=== PATIENT | male | born 1935 | race Caucasian/White ===

== ENCOUNTER 2018-12-29 09:05 | Observation (INO) | payer OTHER, SELFPAY ==
[2018-12-29] VITALS (16 sets, daily range): BP systolic 148–244; BP diastolic 53–108; PULSE 55–73; RESP 12–18; TEMP 36.7–37.2; O2SAT 93–97; BMI 22.4; BMI 21.3
--- NOTE | 2018-12-29 09:16 | EKG12_ITS ---
Test Reason : HTN Blood Pressure : / mmHG Vent. Rate : 066 BPM Atrial Rate : 066 BPM P-R Int : 176 ms QRS Dur : 098 ms QT Int : 398 ms P-R-T Axes : 082 -43 060 degrees QTc Int : 417 ms Normal sinus rhythm Left axis deviation Minimal voltage criteria for LVH, may be normal variant Cannot rule out Anteroseptal infarct , age undetermined Abnormal ECG Confirmed by YAYO BEE, DOMONIQUE ([id number]), publication editor EASTON CHANEY ([id number]) on 12/31/2018 1:29:15 PM Referred By: Leon Barrett Confirmed By:DOMONIQUE ZEE MD
--- NOTE | 2018-12-29 09:18 | ED.VISSUMM ---
- ER Visit Summary Date of Service: 12/29/18 Chief Complaint: Hypertension History of Present Illness: The patient is a 83 M who presents with hypertension that began yesterday. Patient states he had a warm feeling all over his body yesterday. Patient states he took his blood pressure and it was elevated. Patient states this improved yesterday evening and his blood pressure improved to 157/70. Patient had a similar feeling again today and took his blood pressure and it was 237/109 at home. Patient denies any chest pain. Patient denies any shortness of breath. Patient denies any nausea or vomiting. Patient denies any history of hypertension. Physical Examination: Vital signs are stable. Patient is afebrile. Patient is in no acute distress. Oral mucosa is pink and moist. Neck is supple. Trachea is midline. There is no JVD noted. Heart was regular rate and rhythm. Lungs are clear and equal bilateral. Abdomen is soft. Bowel sounds are normal. There is no tenderness. There is no guarding noted. Skin is warm dry. Cranial nerves II through XII are intact. There are no focal motor or sensory deficits noted. Extremities are nontender. There is no edema noted. Test Results: EKG showed a normal sinus rhythm with a rate of 66. There are hyperacute T waves noted in V3 through V6. There are no ST changes. There is minimal voltage criteria for LVH. There is no prior EKG available for comparison. CBC, comprehensive metabolic profile, urinalysis were obtained and were all essentially within normal limits. PA and lateral chest x-ray does not show any acute cardiopulmonary process. Emergency Department Course and Treatment: Patient was given a dose of labetalol here. Patient's blood pressure improved to 190/100. Patient's blood pressure then increased back to 203/81. Case was discussed with hospitalist. He will be to evaluate the patient for admission. Patient understood and was agreeable with the plan. All questions were answered. Disposition: Admit to hospital Impression: Hypertensive urgency This note was generated with [employer] dictation software. It may contain incorrect words, spelling, and punctuation that were not noted in review of the chart prior to signing ED Disposition - Plan for ED Patient: Disposition: Acute Care Hospital [facility] Diagnosis: Hypertensive urgency Referrals: NOT,DEFINED [NON-STAFF] -
--- NOTE | 2018-12-29 09:25 | ED.RN ---
NO OLD EKGS
[2018-12-29 09:26] LABS: Absolute Neutrophil Count 3.6 X10^3/uL (2.0-7.7); Basophil# 0.01 X10^3/uL; Basophil% 0.2 % (0-1); Eosinophil# 0.05 X10^3/uL; Eosinophils% 0.8 % (0-5); Hematocrit 43.5 % (40-54); Hemoglobin 15.2 g/dL (13.0-16.5); Lymphocyte % 28.6 % (19-41); Mean Corp Hgb Conc 34.9 g/dL (32-36); Mean Corpuscular Hgb 32.3 pg (27.0-32.0); Mean Corpuscular Volume 92.6 fL (80-94); Mean Platelet Vol. 9.6 fl (6.2-12.0); Monocyte# 0.54 X10^3/uL; Monocyte% 9.1 % (0-10); NRBC Flagged by Analyzer 0 % (0-5); Neutrophil # 3.63 X10^3/uL (2.7-7.7); Neutrophil % 61.1 % (47-70); Platelet Count 183 K/mm3 (150-450); RBC Distribution Width CV 12.6 % (11.6-14.6); RBC Distribution Width SD 42.8 fl (35.1-43.9); White Blood Count 5.9 K/mm3 (4.4-11.0)
[2018-12-29 09:40] LABS: AST(SGOT) 14 U/L (15-37); Alanine Aminotransfer ALT/SGPT 45 U/L (16-61); Albumin, Serum 3.6 g/dL (3.2-5.0); Alkaline Phosphatase 49 U/L (45-117); Anion Gap 7 (5-15); BUN 21 mg/dL (7-18); BUN/Creat Ratio 24.8 RATIO (10-20); Calcium,Total 8.6 mg/dL (8.5-10.1); Chloride 108 mmol/L (98-107); Creatinine, Serum 0.85 mg/dL (0.70-1.30); EST Glomerular Filtration Rate 92 mL/min (>60); Est Glom Filt Rate - Afr Amer 111 mL/min (>60); Estimated Creatinine Clearance 69.76 ml/min; Globulin 3.7 g/dL (2.2-4.2); Glucose 101 mg/dL (74-106); Potassium 3.7 mmol/L (3.5-5.1); Protein, Total 7.3 g/dL (6.4-8.2); Sodium Level 143 mmol/L (136-145)
[2018-12-29 09:47] LABS: Bacteria 0 SEEN /hpf (None Seen); Mucous, Urine 0 SEEN /hpf (<or=2+); Red Blood Cells-Urine 0 SEEN /hpf (0-5); Squamous Epithelial Cells - UA 0 SEEN /hpf (0-5)
[2018-12-29 09:49] LABS: Color, Urine Yellow (Yellow); Glucose, Dipstick Normal (Normal); Ketone-Dipstick 5 mg/dl (Negative); Leukocyte Esterase-Dipstick 25 /ul (Negative); Nitrite-Dipstick Negative (Negative); Occult Blood-Urine Negative /ul (Negative); Protein-Dipstick Negative (Negative); Urine Bilirubin Dipstick Negative (Negative); Urine Clarity Clear (Clear); Urine Urobilinogen Normal (Normal)
--- NOTE | 2018-12-29 09:50 | RAD_ITS ---
STUDY: X-RAY CHEST REASON FOR EXAM: Male, 83 years old. Cough. Hypertension. TECHNIQUE: PA and lateral views of the chest. COMPARISON: None. FINDINGS: EKG electrodes are seen. Hyperinflation. Mild increased markings in the lingular segment of the left upper lobe anteriorly suggestive of scarring. Mild right apical scarring. There is no demonstrated pleural abnormality. Normal size heart. Normal mediastinum and werner. Normal visualized pulmonary arteries. There is atherosclerotic calcification of the aortic arch with tortuosity. There are diffuse degenerative changes of the visualized thoracic spine. Normal visualized ribs, clavicles, and shoulders. There is no demonstrated abnormality of the visualized soft tissue structures of the upper abdomen. RAD/Chest PA and Lateral IMPRESSION: Hyperinflation. Mild increased markings at the lingular segment of the left upper lobe anteriorly suggestive of scarring. Electronically Signed: Morales Kendrick, at 10:14 EDT , Service support ,
[2018-12-29 10:15] LABS: Amorphous Sediment 2+; White Blood Cells 0-5 SEEN /hpf (0-5)
--- NOTE | 2018-12-29 11:29 | PCM.HP.STD ---
Problem List (1) Hypertensive urgency Status: Acute (2) Advanced age Status: Chronic History of Present Illness Date of Admission: 12/29/18 Chief Complaint: Elevated blood pressure The patient is a 83 year old M relatively good health on no medications who presented with elevated blood pressure. Patient states he is noticed that for the past couple of days his blood pressure has remained consistently high. On the day prior to coming in his systolic blood pressure was recorded to be 230. He states that he went to work and felt fine however he did check his blood pressure again on the morning of his admission and systolic was greater than 200 he finally presented to the ED. Work-up in the ED was unremarkable. Given how high his blood pressure was decision was made to admit patient to a monitored bed for subsequent management Past Medical History Past Medical History (Chronic Problems): Chronic Problems Advanced age (Chronic) Allergies No Known Allergies Allergy (Verified 12/29/18 09:06) Home Medications: Ambulatory Orders Medication Instructions Recorded NK 12/29/18 Smoking Status: Never smoker - *Family History Paternal History Items: Heart Disease Maternal History Items: Heart Disease - at age 90 Review of Systems Constitutional: Denies: Anorexia, Chills, Fever, Night Sweats, Weight Change HEENT: Denies: Head Aches, Sinus Congestion, Sinus Drainage Cardiovascular: Denies: Chest Pain, Orthopnea, Palpitations, Paroxysmal Noc. Dyspnea Respiratory: Denies: Cough, Shortness of breath at rest, Shortness of breath upon exertion, Sputum production Gastrointestinal: Denies: Abdominal Pain, Hematemesis, Hematochezia, Nausea, Melena, Vomiting Genitourinary: Denies: Dysuria, Frequency, Hematuria, Urgency Musculoskeletal: Denies: Joint Pain, Joint Tenderness Skin: Denies: Rash Neurological: Denies: Focal weakness, Numbness, Tingling Psychiatric: Denies: Homicidal Ideations, Suicidal Ideations Hematologic/ Lymphatic: Denies: Easy Bruising, Easy Bleeding VTE Information - Inpt Only VTE Present on Admission: No VTE Mechan Device Prophylaxis: Knee High JOHN Hose VTE Pharm Prophylaxis ordered?: Yes Patient Problems: Active and Suspected Problems Hypertensive urgency (Acute) Objective: GENERAL: cooperative HEENT: Atraumatic; EYES; Anicteric, NECK; supple, normal thyroid, RESPIRATORY: Diminished to auscultation CARDIOVASCULAR: Regular S1 S2, GI: soft, non-tender, normoactive bowel sounds, : No Renal angle tenderness; EXTREMITIES: No edema, no clubbing, MUSCULOSKELETAL: No Joint Tenderness; NEURO: Awake; no lateralizing signs. SKIN: No Rash PSYCH; Normal affect - Physical Exam Vital Signs Temp Pulse Resp BP Pulse Ox 98.7 F 62 15 202/74 H 96 12/29/18 09:07 12/29/18 11:28 12/29/18 11:28 12/29/18 11:28 12/29/18 11:28 Oxygen Flow Rate (L/min) 2 Oxygen Delivery Method Room Air Weight: 74.9 kg Body Mass Index (BMI) 22.4 Laboratory Tests Past 24 Hrs 12/29/18 12/29/18 12/29/18 09:15 09:15 09:34 WBC 5.9 RBC 4.70 Hgb 15.2 Hct 43.5 MCV 92.6 MCH 32.3 H MCHC 34.9 RDW Std Deviation 42.8 RDW Coeff of Atif 12.6 Plt Count 183 MPV 9.6 Immature Gran % (Auto) 0.200 Neut % (Auto) 61.1 Lymph % (Auto) 28.6 Yancey % (Auto) 9.1 Eos % (Auto) 0.8 Baso % (Auto) 0.2 Absolute Neuts (auto) 3.6 Absolute Lymphs (auto) 1.70 Nucleated RBC % 0 Sodium 143 Potassium 3.7 Chloride 108 H Carbon Dioxide 28.0 Anion Gap 7 BUN 21 H Creatinine 0.85 Estim Creat Clear Calc 69.76 Est GFR (MDRD) Af Amer 111 Est GFR (MDRD) Non-Af 92 BUN/Creatinine Ratio 24.8 H Glucose 101 Calcium 8.6 Total Bilirubin 0.90 AST 14 L ALT 45 Alkaline Phosphatase 49 Troponin I < 0.015 Total Protein 7.3 Albumin 3.6 Globulin 3.7 Albumin/Globulin Ratio 1.0 Urine Color Yellow Urine Clarity Clear Urine pH 8.0 Ur Specific [place] 1.010 Urine Protein Negative Urine Glucose (UA) Normal Urine Ketones 5 H Urine Occult Blood Negative Urine Nitrite Negative Urine Bilirubin Negative Urine Urobilinogen Normal Ur Leukocyte Esterase 25 H Urine RBC 0 SEEN Urine WBC 0-5 SEEN Ur Squamous Epith Cells 0 SEEN Amorphous Sediment 2+ Urine Bacteria 0 SEEN Urine Mucus 0 SEEN Assessment/Plan All Active Problems Hypertensive urgency (Acute) Patient is an 83-year-old gentleman in relatively good health presented with markedly elevated blood pressure 1. Acute hypertensive urgency in the patient without any prior diagnosis. Patient is been admitted to monitored bed patient was started on amlodipine as well as beta-blockers in addition to hydralazine PRN. As part of his management ordered 2D echo for EF assessment 2. Advanced age of 83 3. DVT prophylaxis SC Lovenox CODE STATUS full code Code Visit OBSV E&M: 80303 Initial observation care L3
--- NOTE | 2018-12-29 11:58 | CASEMGMT ---
RN CM Assessment Introduced role of RN CM to patient and patient Dtr & Son at bedside.? Patient is alert, oriented and able?to participate in RN CM Assessment. ?Care providers, pharmacy, and demographics verified. Presentation: Elevevated began yesterday, improved to 157/70, Today increased to 237/109, Denies h/o HTN. Admit Dx: Hypertensive Urgency Re-Admit: No Barriers/Issues: None, has a good family support system. States that he still works 4days/week. No Rx coverage, May need assistance if DC'd with Prescription. Insur- myRet[employer], Does not cover medications. PCP: None, states that he will most likely establish with his 's PCP, PCP list provided. States has been healthy and not needed a PCP as of yet. Specialists: None Preferred Pharmacy: [facility] okay if DC'd while still open, if not states to discuss with him and will tell you which Pharmacy as they are going to be switching his 's Pharmacy but did not know the name of it at this time. Insurance: myRete Rx Benefit:?None, Self Pay LNOK: Levi Oquendo Living Arrangements:? Lives with in a 2 story home, Bedroom on [address]. 2 steps to enter home on one entrance and 4 steps to enter at another entrance. ADL?s: Independent with ambulation and ADLs Transportation: [employer]uggie or Hired Staff Development Coordinator. Upon DC plans to Hire a Staff Development Coordinator. DME: None HHC: None SNF: None Goal: Home and does not anticipate will need anything, denies any questions/concerns/issues with DC Planning at this time. Aware CM remains available for any emerging needs. DC PLAN: Home with no anticipated needs identified at this time. May need a Coupon Card or assistance with DC Medications- if any. URSULA Salgado
--- NOTE | 2018-12-29 12:04 | ECHOD_ITS ---
Reason For Study: HYPERTENSION Procedure This was a 2D Doppler, Color Flow transthoracic echocardiogram. The study was technically difficult. Exam performed in department. Left Ventricle Normal LV size. Mild concentric left ventricular hypertrophy. Left ventricular systolic function is normal. The estimated ejection fraction is 65 %. There is evidence of diastolic dysfunction. No regional wall motion abnormalities noted. Right Ventricle Normal RV size. Normal systolic function. Atria The left atrium is mildly enlarged. Normal right atrium. No doppler evidence for ASD. Mitral Valve There is mild mitral annular calcification. Extension of the mitral annular calcification onto the mitral valve leaflets. Trivial mitral valve insufficiency. Tricuspid Valve Normal tricuspid valve. Mild (1+) eccentric tricuspid valve insufficiency. Right ventricular systolic pressure estimated to be 38 mmHg. Aortic Valve Trisinus/trileaflet aortic valve. Normal aortic valve. Trivial aortic valve insufficiency. Pulmonic Valve The pulmonic valve is not well visualized. Trivial pulmonic valve insufficiency. Great Vessels Normal sized aortic root. Pericardium/Pleural No pericardial effusion. MMode/2D Measurements & Calculations LVIDd: 4.1 cm IVSd: 1.4 cm Ao root diam: 2.9 cm LVIDs: 2.6 cm LVPWd: 1.4 cm RVDd: 3.6 cm FS: 36.2 % LAV(MOD-bp): 61.6 ml LA A4 area: 18.5 cm2 LA dimension(2D): 3.9 cm LAV(MOD-bp) Indexed: 31.4 ml/m2 LAV(MOD-sp2): 62.6 ml LAV(MOD-sp4): 54.9 ml RA A4 area: 15.1 cm2 Time Measurements MV dec time: 0.38 sec Doppler Measurements & Calculations MV E max domingo: 97.7 cm/sec Lat Peak E' Domingo: 5.4 cm/sec Med Peak E' Domingo: 6.4 cm/sec MV A max domingo: 127.4 cm/sec E/E' lat: 18.0 E/E' med: 15.3 MV E/A: 0.77 Ao V2 max: 161.9 cm/sec LV V1 max: 135.0 cm/sec PA V2 max: 80.8 cm/sec Ao max P.5 mmHg LV V1 max P.3 mmHg TR max domingo: 294.8 cm/sec TR max P.8 mmHg Interpretation Summary The study was technically difficult. Left ventricular systolic function is normal. The estimated ejection fraction is 65 %. Mild concentric left ventricular hypertrophy. The left atrium is mildly enlarged. There is mild mitral annular calcification. Extension of the mitral annular calcification onto the mitral valve leaflets. Trivial mitral valve insufficiency. Mild (1+) eccentric tricuspid valve insufficiency. Trivial aortic valve insufficiency. Trivial pulmonic valve insufficiency. Right ventricular systolic pressure estimated to be 38 mmHg. There is evidence of diastolic dysfunction. Ordering Physician: Leon Barrett Referring Physician: NO PCP Performed By: Gema Able, KURT, RVT
[2018-12-29] MEDS: Metoprolol Tartrate 25 MG Tablet PO ×2 (13:52→21:34)
[2018-12-29] MEDS: amLODIPine 10 MG Tablet PO (13:52)
[2018-12-29] MEDS: hydrALAZINE 20 MG/ML Vial 10 MG IV (16:30)
[2018-12-30] VITALS (8 sets, daily range): BP systolic 156–162; BP diastolic 62–79; PULSE 56–88; RESP 16; TEMP 36.7–36.8; O2SAT 97–98
[2018-12-30] MEDS: hydrALAZINE 20 MG/ML Vial 10 MG IV (04:25)
[2018-12-30] MEDS: 0.9% NaCl Peripheral Flush Adult/Peds IV (04:28)
[2018-12-30 06:07] LABS: Absolute Lymphocyte Count 1.45 X10^3/uL (0.83-4.51); Absolute Neutrophil Count 3.7 X10^3/uL (2.0-7.7); Basophil# 0.03 X10^3/uL; Basophil% 0.5 % (0-1); Eosinophil# 0.05 X10^3/uL; Eosinophils% 0.9 % (0-5); Hematocrit 42.7 % (40-54); Hemoglobin 14.5 g/dL (13.0-16.5); Lymphocyte # 1.45 X10^3/ul (4.0); Lymphocyte % 25.5 % (19-41); Mean Corpuscular Hgb 31.5 pg (27.0-32.0); Mean Corpuscular Volume 92.8 fL (80-94); Mean Platelet Vol. 9.8 fl (6.2-12.0); Monocyte% 8.8 % (0-10); NRBC Flagged by Analyzer 0 % (0-5); Neutrophil # 3.65 X10^3/uL (2.7-7.7); Neutrophil % 64.1 % (47-70); Platelet Count 184 K/mm3 (150-450); RBC Distribution Width CV 13.1 % (11.6-14.6); RBC Distribution Width SD 44.2 fl (35.1-43.9); White Blood Count 5.7 K/mm3 (4.4-11.0)
[2018-12-30 06:25] LABS: Anion Gap 8 (5-15); BUN 20 mg/dL (7-18); BUN/Creat Ratio 27.7 RATIO (10-20); Calcium,Total 8.6 mg/dL (8.5-10.1); Chloride 109 mmol/L (98-107); Creatinine, Serum 0.72 mg/dL (0.70-1.30); EST Glomerular Filtration Rate 111 mL/min (>60); Est Glom Filt Rate - Afr Amer 134 mL/min (>60); Estimated Creatinine Clearance 56.53 ml/min; Glucose 100 mg/dL (74-106); Potassium 3.8 mmol/L (3.5-5.1); Sodium Level 143 mmol/L (136-145)
[2018-12-30] MEDS: Metoprolol Tartrate 25 MG Tablet PO (08:46)
[2018-12-30] MEDS: Enoxaparin 40 MG/0.4 ML Syringe SC (08:46)
[2018-12-30] MEDS: amLODIPine 10 MG Tablet PO (08:46)
--- NOTE | 2018-12-30 09:12 | PCM.DC ---
- Discharge Diagnoses Current Active Problems: Current Active and Chronic Problems Hypertensive urgency (Acute) Advanced age (Chronic) You will use the following diet at home:: No restrictions Your food should be the consistency of: Regular Discharge Activity: Return to Normal Activity Allergies/Adverse Reactions: Allergies No Known Allergies Allergy (Verified 12/29/18 09:06) Medications to take at Discharge Amlodipine [Norvasc] 10 mg PO DAILY #30 tab 12/30/18 Metoprolol Tartrate [Lopressor (beta jose g)] 25 mg PO BID #60 tab 12/30/18 The following prescriptions were given: Metoprolol Tartrate [Lopressor (beta jose g)] 25 mg PO BID #60 tab Transmission Status: Pending to [facility] Amlodipine [Norvasc] 10 mg PO DAILY #30 tab Transmission Status: Pending to [facility] Primary Care Physician: NOT,DEFINED [NON-STAFF] - Please follow up with your Primary Care Physician in: in 1 week Test Results: Test results from this visit will be discussed in further detail at your follow-up appointment, if applicable. Proposed Discharge Date: 12/30/18
--- NOTE | 2018-12-30 09:13 | DS.PCM_ITS ---
Discharge Date and Diagnosis - Problem List Patient Problems: Active and Suspected Problems Hypertensive urgency (Acute) Date of Admission: 12/29/18 Date of Discharge: 12/30/18 - Primary Discharge Diagnosis Active and Suspected Problems Hypertensive urgency (Acute) - Secondary Discharge Diagnosis Chronic Problems Advanced age (Chronic) Hospital Course and Treatment Imaging Results: Clinical Impression(s) from Imaging Studies Chest X-Ray 12/29/18 09:50 IMPRESSION: Hyperinflation. Mild increased markings at the lingular segment of the left upper lobe anteriorly suggestive of scarring. Electronically Signed: Morales Mireille, at 10:14 EDT , Service support , Summary of Care Provided: Patient is an 83-year-old gentleman in relatively good health presented with markedly elevated blood pressure 1. Acute hypertensive urgency in the patient without any prior diagnosis. Patient is been admitted to monitored bed patient was started on amlodipine as well as beta-blockers in addition to hydralazine PRN. As part of his management ordered 2D echo for EF assessment patient 2D echo demonstrated EF of 65% with mild left ventricular hypertrophy patient was discharged home on metoprolol 25 mg p.o. twice daily as well as amlodipine 10 mg p.o. daily patient was instructed to follow-up with PCP within 1 week for subsequent care 2. Advanced age of 83 3. DVT prophylaxis SC Lovenox Patient Problems: Active and Suspected Problems Hypertensive urgency (Acute) Objective: GENERAL: cooperative HEENT: Atraumatic; EYES; Anicteric, NECK; supple, normal thyroid, RESPIRATORY: Diminished to auscultation CARDIOVASCULAR: Regular S1 S2, GI: soft, non-tender, normoactive bowel sounds, NEURO: Awake; no lateralizing signs. SKIN: No Rash PSYCH; Normal affect - Physical Exam Vital Signs Temp Pulse Resp BP Pulse Ox 98.1 F 83 16 157/68 H 97 12/30/18 03:30 12/30/18 08:46 12/30/18 03:30 12/30/18 06:00 12/30/18 03:30 Oxygen Flow Rate (L/min) 2 Oxygen Delivery Method Room Air Weight: 71.4 kg Body Mass Index (BMI) 21.3 Intake and Output for Last 24 Hours 12/28/18 12/29/1819 23:59 23:59 23:59 Intake Total 780 / 780 200 / 200 Balance 780 / 780 200 / 200 Laboratory Tests Past 24 Hrs 12/29/18 12/29/18 12/29/18 09:15 09:15 09:34 WBC 5.9 RBC 4.70 Hgb 15.2 Hct 43.5 MCV 92.6 MCH 32.3 H MCHC 34.9 RDW Std Deviation 42.8 RDW Coeff of Atif 12.6 Plt Count 183 MPV 9.6 Immature Gran % (Auto) 0.200 Neut % (Auto) 61.1 Lymph % (Auto) 28.6 [place] % (Auto) 9.1 Eos % (Auto) 0.8 Baso % (Auto) 0.2 Absolute Neuts (auto) 3.6 Absolute Lymphs (auto) 1.70 Nucleated RBC % 0 Sodium 143 Potassium 3.7 Chloride 108 H Carbon Dioxide 28.0 Anion Gap 7 BUN 21 H Creatinine 0.85 Estim Creat Clear Calc 69.76 Est GFR (MDRD) Af Amer 111 Est GFR (MDRD) Non-Af 92 BUN/Creatinine Ratio 24.8 H Glucose 101 Calcium 8.6 Total Bilirubin 0.90 AST 14 L ALT 45 Alkaline Phosphatase 49 Troponin I < 0.015 Total Protein 7.3 Albumin 3.6 Globulin 3.7 Albumin/Globulin Ratio 1.0 Urine Color Yellow Urine Clarity Clear Urine pH 8.0 Ur Specific [place] 1.010 Urine Protein Negative Urine Glucose (UA) Normal Urine Ketones 5 H Urine Occult Blood Negative Urine Nitrite Negative Urine Bilirubin Negative Urine Urobilinogen Normal Ur Leukocyte Esterase 25 H Urine RBC 0 SEEN Urine WBC 0-5 SEEN Ur Squamous Epith Cells 0 SEEN Amorphous Sediment 2+ Urine Bacteria 0 SEEN Urine Mucus 0 SEEN 12/29/18 12/29/18 12/30/18 12:25 14:56 05:20 WBC 5.7 RBC 4.60 Hgb 14.5 Hct 42.7 MCV 92.8 MCH 31.5 MCHC 34.0 RDW Std Deviation 44.2 H RDW Coeff of Atif 13.1 Plt Count 184 MPV 9.8 Immature Gran % (Auto) 0.200 Neut % (Auto) 64.1 Lymph % (Auto) 25.5 [place]uyler % (Auto) 8.8 Eos % (Auto) 0.9 Baso % (Auto) 0.5 Absolute Neuts (auto) 3.7 Absolute Lymphs (auto) 1.45 Nucleated RBC % 0 Sodium Potassium Chloride Carbon Dioxide Anion Gap BUN Creatinine Estim Creat Clear Calc Est GFR (MDRD) Af Amer Est GFR (MDRD) Non-Af BUN/Creatinine Ratio Glucose Calcium Total Bilirubin AST ALT Alkaline Phosphatase Troponin I < 0.015 < 0.015 Total Protein Albumin Globulin Albumin/Globulin Ratio Urine Color Urine Clarity Urine pH Ur Specific Stewart Urine Protein Urine Glucose (UA) Urine Ketones Urine Occult Blood Urine Nitrite Urine Bilirubin Urine Urobilinogen Ur Leukocyte Esterase Urine RBC Urine WBC Ur Squamous Epith Cells Amorphous Sediment Urine Bacteria Urine Mucus 12/30/18 05:20 WBC RBC Hgb Hct MCV MCH MCHC RDW Std Deviation RDW Coeff of Atif Plt Count MPV Immature Gran % (Auto) Neut % (Auto) Lymph % (Auto) Schu[place] % (Auto) Eos % (Auto) Baso % (Auto) Absolute Neuts (auto) Absolute Lymphs (auto) Nucleated RBC % Sodium 143 Potassium 3.8 Chloride 109 H Carbon Dioxide 26.0 Anion Gap 8 BUN 20 H Creatinine 0.72 Estim Creat Clear Calc 56.53 Est GFR (MDRD) Af Amer 134 Est GFR (MDRD) Non-Af 111 BUN/Creatinine Ratio 27.7 H Glucose 100 Calcium 8.6 Total Bilirubin AST ALT Alkaline Phosphatase Troponin I Total Protein Albumin Globulin Albumin/Globulin Ratio Urine Color Urine Clarity Urine pH Ur Specific Stewart Urine Protein Urine Glucose (UA) Urine Ketones Urine Occult Blood Urine Nitrite Urine Bilirubin Urine Urobilinogen Ur Leukocyte Esterase Urine RBC Urine WBC Ur Squamous Epith Cells Amorphous Sediment Urine Bacteria Urine Mucus Discharge Diet: No Restrictions Discharge Activity: Return to Normal Activity Home Medications: Medications to take at Discharge Amlodipine [Norvasc] 10 mg PO DAILY #30 tab 12/30/18 Metoprolol Tartrate [Lopressor (beta jose g)] 25 mg PO BID #60 tab 12/30/18 Following Prescrptions Were Given to Patient: Metoprolol Tartrate [Lopressor (beta jose g)] 25 mg PO BID #60 tab Transmission Status: Pending to [facility] Amlodipine [Norvasc] 10 mg PO DAILY #30 tab Transmission Status: Pending to [facility] Primary Care Physician: NOT,DEFINED [NON-STAFF] - Please follow up with your Primary Care Physician in: in 1 week Disposition: Home Minutes spent on discharge:: 35 Patient Condition:: Stable Medical Necessity - Tobacco Use Smoking Status: Never smoker Meaningful Use Info Meaningful Use Diagnoses (Choose all that apply): None applicable Code Visit OBSV E&M: 13870 Observation care discharge
== END 2018-12-30 09:12 | disposition home or self-care (01) ==
LOC: ED 11:29 → PCU 11:35
PROVIDERS: Admitting Provider Internal Medicine; Emergency Provider Emergency Medicine; Referring Provider Internal Medicine; Visit Provider Internal Medicine
DX: I16.0 Hypertensive urgency (principal); I10 Essential (primary) hypertension; R94.31 Abnormal electrocardiogram [ECG] [EKG]; I08.3 Combined rheumatic disorders of mitral, aortic and tricuspid valves
CPT/HCPCS: 36415; 71046; 80048; 80053; 81001; 84484; 85025; 93005; 93306; 96372; 96374; 96375; 96376; 99218; 99251; 99285; J7030; A4216; G0378; G0463

== ENCOUNTER 2019-08-20 14:07 | Observation (INO) | payer OTHER, SELFPAY ==
[2019-08-20] VITALS (14 sets, daily range): BP systolic 120–204; BP diastolic 54–91; PULSE 58–641; RESP 14–19; TEMP 36.2–37.2; O2SAT 94–97; BMI 22.4; BMI 21.8; BMI 20.9; BMI 21.0
--- NOTE | 2019-08-20 14:18 | EKG12_ITS ---
Test Reason : Blood Pressure : / mmHG Vent. Rate : 064 BPM Atrial Rate : 064 BPM P-R Int : 208 ms QRS Dur : 098 ms QT Int : 418 ms P-R-T Axes : 075 -47 036 degrees QTc Int : 431 ms Normal sinus rhythm Left axis deviation Minimal voltage criteria for LVH, may be normal variant Abnormal ECG Confirmed by ROBER BEE, GERHARD ([id number]), senior technical editor JAGUAR BUCK ([id number]) on 08/23/2019 10:52:33 AM Referred By: MATI Confirmed By:GERHARD RICHTER MD
--- NOTE | 2019-08-20 14:18 | CT_ITS ---
STUDY: CT BRAIN WITHOUT CONTRAST REASON FOR EXAM: Male, 83 years old. DIZZINESS X 2 DAYS, CONFUSION RADIATION DOSAGE (If Supplied By Facility): CTDIvol = ( 44.99 ) mGy, DLP = ( 812.98 ) mGycm TECHNIQUE: Transaxial CT imaging of the brain was performed without administration of intravenous contrast material. Individualized dose optimization techniques were used for this CT. COMPARISON: No relevant priors. FINDINGS: Normal soft tissue structures. Normal calvarium. There is mild cerebral atrophy with widening of the extra-axial spaces and ventricular dilatation. There are areas of decreased attenuation within the white matter tracts of the supratentorial brain, consistent with microvascular disease changes. There are small punctate calcifications of the basal ganglia which are seen in the aging brain as a normal variant. Normal brainstem. Normal cerebellum. There is no intracranial hemorrhage. There are no findings of an acute ischemic infarction. Atherosclerotic calcification of the cavernous portions of the internal carotid arteries bilaterally. Normal visualized paranasal sinuses. CT/Brain/Head without Contrast IMPRESSION: Chronic involutional changes of the brain. Electronically Signed: Morales Kendrick, at 15:22 EDT , Service support ,
--- NOTE | 2019-08-20 14:21 | ED.DCSUM_ITS ---
History of Present Illness Informant: Patient Onset: Days Context: Gradual Onset Timing: Intermittent Current Severity: Moderate Maximum Severity: Moderate Narrative: The patient is an 83-year-old male that presents to the emergency department with intermittent vertiginous symptoms and difficulties with word finding. Patient states on Friday, when he woke up, he turned his head and got the acute onset of vertiginous symptoms. He states that they would come and go were made worse with movement. He was referred to ENT. The patient began to have difficulty with word finding at the office. He was sent over for immediate evaluation. The patient states that on arrival, symptoms have markedly improved. He still does describe some sensation of motion, but feels like his speech is back to normal. He denies any fevers or chills. He states he is otherwise been in his normal state of health. Prior similar symptoms: No Recent Illness/Hospitalization: No <Riki Hightower - Last Filed: 08/20/19 14:23> <Pradeep Muhammad - Last Filed: 08/20/19 15:44> Chief Complaint: Dizziness Past Medical History Prior records reviewed: Yes Past Medical History: - - Hypertension Surgical History: noncontributory Smoking Status: Never smoker - Family History Paternal Family History: Reports: Heart Disease Maternal Family History: Reports: Heart Disease - at age 90 <Riki Hightower - Last Filed: 08/20/19 14:23> <Pradeep Muhammad - Last Filed: 08/20/19 15:44> - Allergies and Home Meds Allergies/Adverse Reactions: Allergies No Known Allergies Allergy (Verified 08/20/19 14:08) Primary Care Physician: Amy Garsia NP-C [Primary Care Provider] - Review of Systems General: Denies: Chills, Fever, Sweats Eyes: Denies: Visual changes - bilaterally, Diplopia ENT: Denies: Rhinorrhea, Sore throat Cardiovascular: Denies: Chest pain, Palpitations Respiratory: Denies: Dyspnea, Cough, Dyspnea on exertion Gastrointestinal: Denies: Abdominal pain, Nausea, Vomiting, Diarrhea, Melena, Hematochezia Genitourinary: Denies: Dysuria, Hematuria, Frequency Musculoskeletal: Denies: Back pain, Extremity Pain Skin: Denies: Rash, Wounds Neurological: Reports: Headache. Denies: Weakness, Numbness <KatjaRiki - Last Filed: 08/20/19 14:23> Physical Exam Vital Signs/Narrative: Vital Signs Temp Pulse Resp BP Pulse Ox 08/20/19 14:08 97.2 F L 79 18 204/91 H 97 Inital Vital Signs reviewed: Yes General: Well nourished, Well developed, No Acute Distress Head: Normocephalic, Atraumatic Eyes: Perrl, EOMI ENT: Moist mucous membranes, No rhinorrhea Neck: Supple, Nontender Cardiovascular: Regular rate, Regular rhythm, No murmurs Respiratory: No distress, CTA bilaterally, Chest nontender Abdomen: Soft, Nontender, Nondistended, Normal bowel sounds Back: Nontender, Normal Inspection Extremities: Nontender, No edema Skin: Normal color, No rash Neurological: Alert, Oriented x3, Cranial nerves II-XII grossly intact, Normal Strength, Normal Sensation Psychological: Normal affect, Normal Mood <Riki Hightower - Last Filed: 08/20/19 14:23> Vital Signs/Narrative: Vital Signs Temp Pulse Resp BP Pulse Ox 08/20/19 15:00 64 16 184/67 H 96 08/20/19 14:08 97.2 F L 79 18 204/91 H 97 <Pradeep Muhammad - Last Filed: 08/20/19 15:44> Diagnostic/Tx/Re-eval - Medical Decision Making On arrival, the patient symptoms have resolved. However, his symptoms do seem concerning for TIA versus stroke. Stroke team was not activated given his lack of symptoms. The patient will undergo noncontrast head CT, along with metabolic work-up. <Riki Hightower - Last Filed: 08/20/19 14:23> - Rhythm Strip Rhythm Strip: Sinus Rhythm Rate: 64 Ectopy: None - Medical Decision Making Patient was turned over to me. NIH remains 0. CT brain negative. Metabolic work-up negative. He is not a TPA candidate since his NIH is now 0 but he did have fairly significant expressive aphasia earlier. Given his comorbidities and advanced age, I do feel he meets criteria for observation and TIA work-up. I have paged the hospitalist to arrange this. <Pradeep Muhammad - Last Filed: 08/20/19 15:44> ED Disposition <Riki Hightower - Last Filed: 08/20/19 14:23> <Pradeep Muhammad - Last Filed: 08/20/19 15:44> - Plan for ED Patient: Disposition: Acute Care Hospital [facility] Diagnosis: TIA (transient ischemic attack) Referrals: Amy Garsia, SUZY-C [Primary Care Provider] -
--- NOTE | 2019-08-20 14:43 | RAD_ITS ---
STUDY: X-RAY CHEST REASON FOR EXAM: Male, 83 years old. COUGH, DIZZINESS TECHNIQUE: Single PA view of the chest. COMPARISON: Comparison is made with prior examination dated December 29, 2018. FINDINGS: EKG electrodes are seen. The lungs are clear and expanded. There is no demonstrated pleural abnormality. Normal size heart. Normal mediastinum and werner. Normal visualized pulmonary arteries. There is atherosclerotic calcification of the aortic arch with tortuosity. There are diffuse degenerative changes of the visualized thoracic spine. There is degenerative osteoarthritis of the bilateral shoulders. Calcific tendinitis of the right shoulder. There is no demonstrated abnormality of the visualized soft tissue structures of the upper abdomen. RAD/Chest 1 View IMPRESSION: No acute abnormality is seen. Electronically Signed: Morales Kendrick, at 15:22 EDT , Service support ,
[2019-08-20] MEDS: 0.9% Normal Saline 1,000 ML 100 ML IV (14:58)
[2019-08-20 15:04] LABS: Absolute Lymphocyte Count 0.92 X10^3/uL (0.83-4.51); Absolute Neutrophil Count 4.2 X10^3/uL (2.0-7.7); Basophil# 0.01 X10^3/uL; Basophil% 0.2 % (0-1); Eosinophil# 0.01 X10^3/uL; Eosinophils% 0.2 % (0-5); Hematocrit 41.2 % (40-54); Hemoglobin 14.9 g/dL (13.0-16.5); Lymphocyte # 0.92 X10^3/ul (4.0); Lymphocyte % 16.4 % (19-41); Mean Corp Hgb Conc 36.2 g/dL (32-36); Mean Corpuscular Hgb 31.9 pg (27.0-32.0); Mean Corpuscular Volume 88.2 fL (80-94); Mean Platelet Vol. 9.5 fl (6.2-12.0); Monocyte# 0.44 X10^3/uL; Monocyte% 7.8 % (0-10); NRBC Flagged by Analyzer 0 % (0-5); Neutrophil # 4.21 X10^3/uL (2.7-7.7); Platelet Count 198 K/mm3 (150-450); RBC Distribution Width CV 12.3 % (11.6-14.6); RBC Distribution Width SD 39.7 fl (35.1-43.9); Red Blood Count 4.67 M/mm3 (4.6-6.2); White Blood Count 5.6 K/mm3 (4.4-11.0)
[2019-08-20 15:11] LABS: Prothrombin Time (Protime)PT. 13.4 SECONDS (11.7-14.9)
[2019-08-20 15:12] LABS: Partial Thromboplast Time 32.6 Seconds (24.1-36.2)
[2019-08-20 15:15] LABS: Anion Gap 8 (5-15); BUN 8 mg/dL (7-18); BUN/Creat Ratio 12.8 RATIO (10-20); Calcium,Total 8.7 mg/dL (8.5-10.1); Chloride 92 mmol/L (98-107); Creatinine, Serum 0.62 mg/dL (0.70-1.30); EST Glomerular Filtration Rate 131 mL/min (>60); Est Glom Filt Rate - Afr Amer 158 mL/min (>60); Estimated Creatinine Clearance 57.87 ml/min; Glucose 134 mg/dL (74-106); Potassium 3.4 mmol/L (3.5-5.1); Sodium Level 127 mmol/L (136-145)
--- NOTE | 2019-08-20 17:28 | HP.PCM_ITS ---
Problem List (1) Hyponatremia Status: Acute (2) Vertigo Status: Acute (3) Diastolic dysfunction Status: Chronic (4) Left ventricular hypertrophy Status: Chronic Comment: Mild (5) Left atrial enlargement Status: Chronic Comment: Mild (6) Pulmonary hypertension Status: Acute Comment: Mild, RV systolic in 2019 estimated at 38 (7) TIA (transient ischemic attack) Status: Acute Comment: 08/20/19 expressive aphasia (8) Hypertensive urgency Status: Resolved (9) Advanced age Status: Chronic (10) Hypokalemia Status: Acute History of Present Illness Date of Admission: 08/20/19 Chief Complaint: could not get his speech out today and has had vertigo since friday The patient is a 83 year old M with a past medical history of hypertension, diastolic dysfunction, left atrial enlargement, mild pulmonary hypertension with an RV systolic estimated at 38 and OA who presented to the emergency department at [facility] on 08/20/2019 complaining of vertigo which started 2 days ago. It increases with changes in head position and is associated with nausea and vomiting. He was seen by Amy Garsia this morning and was given a prescription for Antivert. He took one Antivert and it seems to have helped. He was referred to Dr. Bautista and went to the office. When he arrived at the office he had expressive a aphasia and he was referred to the emergency depart ment. By the time he arrived at the emergency department the expressive a aphasia had resolved. He denies any hx of a stroke in the past. He smoked for a time MANY years ago. No FH of strokes or NV's. He denies chest pain, shortness of breath, headache, sore throat, nasal congestion, ear pain and cough. Vital signs at presentation to the emergency department were temperature 97.2, blood pressure 204/91, respiratory rate 18 and he is 97% saturated on room air. Current blood pressure is 148/63 and he did not receive any meds. Chest x-ray showed no infiltrates, pleural effusions or pulmonary vascular congestion. A noncontrasted CT brain showed cerebral atrophy only. CBC was unremarkable. Sodium is low at 127, potassium is low at 3.4 and the chloride is low at 97. The BUN is 8 with a creatinine of 0.62. Random blood sugar is 134 and he has no history of diabetes mellitus. Troponin was less than 0.015. EKG showed no ST elevation and no significant T wave inversions or ST depression. He is being admitted to a monitored bed on PCU to be evaluated for cerebrovascular disease. He did not take his BP pill today and this may be why his BP is increased but, when I look at the BP's he has been recording at home....they are frequently too high. Past Medical History Past Medical History (Chronic Problems): Chronic Problems Advanced age (Chronic) Diastolic dysfunction (Chronic) Left ventricular hypertrophy (Chronic) Mild Left atrial enlargement (Chronic) Mild Allergies No Known Allergies Allergy (Verified 08/20/19 14:08) Home Medications: Ambulatory Orders Medication Instructions Recorded Amlodipine [Norvasc] 10 mg PO DAILY 08/20/19 Meclizine HCl [Antivert] 12.5 mg PO BID PRN PRN 08/20/19 Surgical History: no surgical history Psychiatric History: No pertinent psych hx Lives: With Family Smoking Status: Former smoker - for a brief time when he was a young man Tobacco Use: Non-smoker Alcohol: None Drugs: None - *Family History Paternal History Items: Heart Disease Maternal History Items: Heart Disease - at age 90 Review of Systems Constitutional: Reports: Anorexia, Malaise. Denies: Chills, Fever, Weight Change Eyes: Denies: Blurred vision HEENT: Reports: - - he has had vertigo for the past 48 hours. Denies: Difficulty Swallowing, Ear Pain, Head Aches, Nasal Congestion, Sinus Congestion, Sinus Drainage, Sore Throat Cardiovascular: Denies: Chest Pain, Edema, Light Headedness, Palpitations Respiratory: Denies: Cough, Shortness of breath at rest, Sputum production Gastrointestinal: Denies: Abdominal Pain, Nausea, Vomiting Genitourinary: Denies: Dysuria Musculoskeletal: Denies: Joint Pain, Joint Tenderness, Neck Pain Skin: Denies: Jaundice, Rash, Wounds Neurological: Reports: Change in Speech - brief transient expressive aphasia. Denies: Focal weakness, Numbness, Tingling, Tremor, Seizures Psychiatric: Denies: Anxiety, Depression, Homicidal Ideations, Suicidal Id eations Endocrine: Reports: Change in Body Habitus - he has lost 5 lbs this week due to poor intake and vomiting but prior to this week his wt was stable Hematologic/ Lymphatic: Denies: Easy Bruising, Easy Bleeding, Hx of blood clot VTE Information - Inpt Only VTE Present on Admission: No VTE Mechan Device Prophylaxis: None VTE Pharm Prophylaxis ordered?: Yes Patient Problems: Active and Suspected Problems TIA (transient ischemic attack) (Acute) 08/20/19 expressive aphasia Hyponatremia (Acute) Vertigo (Acute) Pulmonary hypertension (Acute) Mild, RV systolic in 2019 estimated at 38 Hypokalemia (Acute) - Physical Exam Vitals/I&O's: Vital Signs Temp Pulse Resp BP Pulse Ox 98.6 F 79 18 148/63 H 96 08/20/19 16:26 08/20/19 17:07 08/20/19 17:07 08/20/19 17:07 08/20/19 17:07 Oxygen Delivery Method Room Air Weight: 161 lb 2.526 oz Body Mass Index (BMI) 21.8 Finger Stick Blood Glucose 134 General: Alert, Oriented x3, Cooperative, - - looks as though he does not feel well and also looks tired HEENT: Atraumatic, PERRLA, EOMI, Normocephalic, - - very mild horizontal nystagmus Oral: Moist Mucosa Neck: Supple, No JVD, Negative Carotid Bruits, No Nodes, No Nuchal Rigidity, Trachea Midline, - - Brisk carotid upstroke with good pulse volume Lungs: Clear to auscultation, Normal air movement, No rhonchi, No wheeze, No rales Cardiovascular: Regular rate, Regular Rhythm, Normal S1, Normal S2, No murmurs, No Ectopic Activity, No rub noted, No Gallop Abdomen: Bowel Sounds Present, Soft, Non Tender, Non-Distended, - - No guarding with palpation, nontender Extremities: No clubbing, No cyanosis, No edema, Capillary Refill Less than 3 Seconds, No Calf Tenderness, Peripheral Pulses Normal Skin: No rashes, No breakdown Musculoskeletal: No Tenderness to Palpation of Joints or Extremities, No Muscle Wasting Neurological: Cranial nerves II-XII grossly intact, Neuro grossly intact Psych/Mental Status: Normal Affect, Appropriate Laboratory Results 08/20/19 14:45: WBC 5.6, RBC 4.67, Hgb 14.9, Hct 41.2, MCV 88.2, MCH 31.9, MCHC 36.2 H, RDW Std Deviation 39.7, RDW Coeff of Atif 12.3, Plt Count 198, MPV 9.5, Immature Gran % (Auto) 0.400, Neut % (Auto) 75.0 H, Lymph % (Auto) 16.4 L, [place] % (Auto) 7.8, Eos % (Auto) 0.2, Baso % (Auto) 0.2, Absolute Neuts (auto) 4.2, Absolute Lymphs (auto) 0.92, Nucleated RBC % 0 08/20/19 14:45: PT 13.4, INR 1.0, APTT 32.6 08/20/19 14:45: Sodium 127 L, Potassium 3.4 L, Chloride 92 L, Carbon Dioxide 27.0, Anion Gap 8, BUN 8, Creatinine 0.62 L, Estim Creat Clear Calc 57.87, Est GFR (MDRD) Af Amer 158, Est GFR (MDRD) Non-Af 131, BUN/Creatinine Ratio 12.8, Glucose 134 H, Calcium 8.7, Troponin I < 0.015 Current Medications Sodium Chloride () 1,000 mls @ 100 mls/hr IV .Q10H ONE Stop: 08/21/19 00:17 Last Admin: 08/20/19 14:58 Dose: 100 mls/hr Documented by: Assessment/Plan All Active Problems TIA (transient ischemic attack) (Acute) Hyponatremia (Acute) Vertigo (Acute) Pulmonary hypertension (Acute) Hypokalemia (Acute) Hypertensive urgency (Resolved) Impressions 1. TIA with transient expressive a aphasia, resolved prior to arriving in the emergency department. Being admitted to a monitored bed on PCU for neurologic work-up. No history of atrial fibrillation. Mild left atrial enlargement on an echocardiogram done within the past year. 2. Hyponatremia -BUN/creatinine ratio is not significantly elevated and I cannot definitely attribute this to dehydration. Will check a urine sodium, urine creatinine, urine and serum osmolality. 3. Hyperglycemia with no history of diabetes mellitus type 2-we will check a hemoglobin A1c 4. Hypertension -we will allow permissive elevation in high blood pressure at this time until neurologic evaluation has been completed. 5. Diastolic dysfunction 6. Left ventricular hypertrophy 7. Mild pulmonary hypertension with a right ventricular systolic pressure estimated at 38 within the past year 8. vertigo for 48H - somewhat better after one dose of Antivert Admit to a monitored bed on PCU Initiate Stroke protocol CTA of the head and neck Antiplatelet therapy with aspirin PT consult for vertigo and gait unsteadiness Hydrate-he received 1 L of normal saline in the emergency department and will continue 75 cc of normal saline per hour Lipid profile in the AM ECHO If he has an abnormal CTA of the head or neck consider an MRI and SOC consult OBSV E&M: [id number] Initial observation care L2
--- NOTE | 2019-08-20 18:25 | CT_ITS ---
STUDY: CTA HEAD AND NECK WITH CONTRAST REASON FOR EXAM: Male, 83 years old. DIZZINESS x 2 days,confusion,nausea and vomiting RADIATION DOSAGE (If Supplied By Facility): CTDIvol = ( 26.86 ) mGy, DLP = ( 658.67 ) mGycm TECHNIQUE: CT angiography was performed with a multi-detector CT scanner. Data acquisition was obtained from the skull base through the vertex following intravenous administration of IV 100mL [id number]-[id number]. MIP images were reconstructed from the axial data set. Post-processing of the angiographic images was performed, with multiplanar reformation and 3D reconstruction. Individualized dose optimization techniques were used for this CT. COMPARISON: Head CT same day FINDINGS: Intracranial ICA calcifications. Otherwise: Normal bilateral petrous carotid arteries. Normal right cavernous carotid artery with a normal supraclinoid bifurcation. Normal left cavernous carotid artery with a normal supraclinoid bifurcation. Normal right A1 segments of the anterior cerebral artery. Normal left A1 segments of the anterior cerebral artery. Normal intact anterior communicating artery (ACOM). Normal bilateral A2 segments of the anterior cerebral arteries. Normal right M1 and M2 segments of the middle cerebral arteries, with a normal M1 bifurcation. Normal left M1 and M2 segments of the middle cerebral arteries, with a normal M1 bifurcation. Normal right posterior communicating artery (PCOM). There is a persistent origin of the left posterior cerebral artery with absence of the posterior communicating artery (PCOM). Normal bilateral vertebral arteries. Normal basilar artery with a normal basilar bifurcation. The visualized bilateral superior cerebellar (SCA) arteries are normal. Normal bilateral P1, P2 and visualized P3 segments of the posterior cerebral arteries. There is no demonstrated aneurysm of the [place]. There is no demonstrated abnormality of the visualized brain. AORTIC ARCH: Normal visualized aortic arch. Normal origins of the brachiocephalic, left common carotid, and left subclavian arteries. RIGHT CAROTID ARTERIES: Normal right common carotid artery (CCA). Moderate eccentric mixed plaque in the carotid bulb without associated flow-limiting stenosis. Normal origin of the right internal carotid (ICA) artery without a hemodynamically significant stenosis. Normal visualized cervical portion of the right internal carotid artery. Normal origin of the right external carotid artery (ECA). LEFT CAROTID ARTERIES: Normal left common carotid artery (CCA). Extensive concentric mixed plaque in the carotid bulb without associated flow-limiting stenosis. Normal origin of the left internal carotid (ICA) artery without a hemodynamically significant stenosis. Normal visualized cervical portion of the left internal carotid artery. Normal origin of the left external carotid artery (ECA). VERTEBRAL ARTERIES: Normal bilateral vertebral arteries. CT/CTA Head AND Neck W/ Contrast IMPRESSION: No CTA evidence of significant intracranial arterial pathology. No CTA evidence of significant arterial pathology in the neck. NASCET criteria was used. Electronically Signed: Naresh Kenney MD at 19:28 EDT Tel , Service support ,
--- NOTE | 2019-08-20 18:25 | ECHOD_ITS ---
Reason For Study: TIA/CVA Procedure This was a 2D Doppler, Color Flow transthoracic echocardiogram. Exam performed portable in patient room. Left Ventricle Normal left ventricle. The estimated ejection fraction is 60 %. Right Ventricle Normal right ventricle. Atria The left atrium is mildly enlarged. increased LA filling pressure. Normal right atrium. Bubble contrast study negative for right to left interatrial shunt. Mitral Valve Trivial mitral valve insufficiency. Tricuspid Valve Mild to moderate (1-2+) eccentric tricuspid valve insufficiency. Pulmonary artery systolic pressure is 29 mmHg. Aortic Valve Aortic sclerosis, no stenosis. Great Vessels Normal aortic root. Pericardium/Pleural No pericardial effusion. Medication Performed a rapid injection of agitated mix of 9 cc saline and 1cc air to assess for atrial septal defect. MMode/2D Measurements & Calculations LVIDd: 3.8 cm IVSd: 1.0 cm Ao root diam: 3.0 cm LVIDs: 2.0 cm LVPWd: 1.2 cm RVDd: 3.6 cm FS: 47.7 % LAV(MOD-bp): 67.2 ml LVAd ap4: 31.4 cm2 SV(MOD-sp4): 56.0 ml LAV(MOD-bp) Indexed: 34.6 ml/m2 EDV(MOD-sp4): 93.5 ml LAV(MOD-sp2): 61.8 ml EDV(sp4-el): 99.4 ml LAV(MOD-sp4): 63.5 ml LVAs ap4: 17.5 cm2 ESV(MOD-sp4): 37.5 ml ESV(sp4-el): 37.5 ml EF(MOD-sp4): 59.9 % EF(sp4-el): 62.3 % SV(sp4-el): 61.9 ml LA A4 area: 19.9 cm2 LA dimension(2D): 3.8 cm RA A4 area: 17.0 cm2 Doppler Measurements & Calculations MV E max domingo: 89.6 cm/sec Lat Peak E' [place]: 5.3 cm/sec Med Peak E' [place]: 7.1 cm/sec MV A max [place]: 113.3 cm/sec E/E' lat: 16.9 E/E' med: 12.6 MV E/A: 0.79 Ao V2 max: 159.7 cm/sec LV V1 max: 122.3 cm/sec PA V2 max: 97.2 cm/sec Ao max P.2 mmHg LV V1 max P.0 mmHg TR max [place]: 261.1 cm/sec TR max P.3 mmHg Interpretation Summary The estimated ejection fraction is 60 %. Pulmonary artery systolic pressure is 29 mmHg. increased LA filling pressure Normal left ventricle. The left atrium is mildly enlarged. Bubble contrast study negative for right to left interatrial shunt. Mild to moderate (1-2+) eccentric tricuspid valve insufficiency. Ordering Physician: Amy Quiroz Referring Physician: Flako Azul Performed By: Marly Gross RDCS
[2019-08-20 19:03] LABS: Hemoglobin A1c 5.8 % (4.2-6.3)
[2019-08-20] MEDS: Aspirin 325 MG Tablet PO (19:55)
[2019-08-20] MEDS: 0.9% Normal Saline 1,000 ML 75 ML IV (19:56)
[2019-08-20 20:05] LABS: Osmolality, Serum 278 mOsm/KG (280-301)
[2019-08-20 20:09] LABS: Osmolality, Urine 92 mOsm/KG
[2019-08-20 20:10] LABS: Creatinine, Urine (random) < 13.00 mg/dL (NO RANGE EST.); Urine Sodium 21 mmol/L (Not Establ.)
[2019-08-21 00:28] VITALS: BMI 20.9
[2019-08-21 02:59] VITALS: PULSE 55
[2019-08-21 03:30] VITALS: BP 126/61; PULSE 59; RESP 14; TEMP 36.7; O2SAT 95
[2019-08-21 06:50] LABS: ALB/GLOB Ratio 1.1 RATIO (0.9-2.4); AST(SGOT) 12 U/L (15-37); Alanine Aminotransfer ALT/SGPT 43 U/L (16-61); Albumin, Serum 3.1 g/dL (3.2-5.0); Alkaline Phosphatase 41 U/L (45-117); Anion Gap 6 (5-15); BUN 9 mg/dL (7-18); Calcium,Total 8.2 mg/dL (8.5-10.1); Chloride 107 mmol/L (98-107); Cholesterol 146 mg/dL (200); Creatinine, Serum 0.75 mg/dL (0.70-1.30); EST Glomerular Filtration Rate 106 mL/min (>60); Est Glom Filt Rate - Afr Amer 128 mL/min (>60); Estimated Creatinine Clearance 55.65 ml/min; Globulin 2.9 g/dL (2.2-4.2); Glucose 98 mg/dL (74-106); High Density Lipoprotein 44 mg/dL; Potassium 4.1 mmol/L (3.5-5.1); Sodium Level 140 mmol/L (136-145); Triglycerides 64 mg/dL; Very Low Density Lipoprotein 13 mg/dL (5-40)
[2019-08-21 07:00] VITALS: PULSE 57
[2019-08-21] MEDS: 0.9% Normal Saline 1,000 ML 75 ML IV (07:28)
[2019-08-21 07:30] VITALS: BP 153/74; PULSE 66; RESP 18; TEMP 36.4; O2SAT 97
[2019-08-21 07:40] VITALS: O2SAT 95
[2019-08-21] MEDS: Aspirin 81 MG TAB.CHEW PO (08:02)
--- NOTE | 2019-08-21 09:40 | PCM.DC ---
- Discharge Diagnoses Current Active Problems: Current Active and Chronic Problems TIA (transient ischemic attack) (Acute) 08/20/19 expressive aphasia Hyponatremia (Acute) Vertigo (Acute) Diastolic dysfunction (Chronic) Left ventricular hypertrophy (Chronic) Mild Left atrial enlargement (Chronic) Mild Pulmonary hypertension (Acute) Mild, RV systolic in 2019 estimated at 38 Hypokalemia (Acute) You will use the following diet at home:: Cardiac Your food should be the consistency of: Regular Discharge Activity: Return to Normal Activity Weight Bearing Status: Weight bearing as tolerated Call your doctor if you observe: Fever of 101 or Higher, Shortness of breath, Dizziness, Fainting spells, Chest pain, Increased palpitations (irregular heartbeat), Uncontrolled pain Allergies/Adverse Reactions: Allergies No Known Allergies Allergy (Verified 08/20/19 14:08) Medications to take at Discharge Amlodipine [Norvasc] 10 mg PO DAILY 08/20/19 Meclizine HCl [Antivert] 12.5 mg PO BID PRN PRN 08/20/19 Aspirin [Aspirin, Baby] 81 mg PO DAILY@0800 #90 tab.chew 08/21/19 The following prescriptions were given: Aspirin [Aspirin, Baby] 81 mg PO DAILY@0800 #90 tab.chew Transmission Status: Pending to [facility]/pharmacy #[id number] Primary Care Physician: Amy Garsia NP-C [Primary Care Provider] - Please follow up with your Primary Care Physician in: 1 WEEK. Test Results: Test results from this visit will be discussed in further detail at your follow-up appointment, if applicable.
[2019-08-21] MEDS: amLODIPine 10 MG Tablet PO (10:29)
[2019-08-21 10:39] VITALS: BP 153/74; PULSE 66; RESP 18; TEMP 36.4; O2SAT 97
--- NOTE | 2019-08-21 11:15 | PCM.DC.SUM ---
Discharge Date and Diagnosis Date of Admission: 08/20/19 Date of Discharge: 08/21/19 - Primary Discharge Diagnosis #1 vertigo, likely due to BPPV. #2 Probable TIA. #3 hyponatremia/hypokalemia, replaced and corrected per protocol. - Secondary Discharge Diagnosis Chronic Problems Advanced age (Chronic) Diastolic dysfunction (Chronic) Left ventricular hypertrophy (Chronic) Mild Left atrial enlargement (Chronic) Mild Hospital Course and Treatment Imaging Results: Clinical Impression(s) from Imaging Studies Brain CT 08/20/19 14:18 IMPRESSION: Chronic involutional changes of the brain. Electronically Signed: Morales Kendrick, at 15:22 EDT , Service support , Chest X-Ray 08/20/19 14:43 IMPRESSION: No acute abnormality is seen. Electronically Signed: Morales Kendrick, at 15:22 EDT , Service support , Head/Neck CTA 08/20/19 18:25 IMPRESSION: No CTA evidence of significant intracranial arterial pathology. No CTA evidence of significant arterial pathology in the neck. NASCET criteria was used. Electronically Signed: Naresh Kenney MD at 19:28 EDT Tel , Service support , 2D echocardiogram: Interpretation Summary The estimated ejection fraction is 60 %. Pulmonary artery systolic pressure is 29 mmHg. increased LA filling pressure Normal left ventricle. The left atrium is mildly enlarged. Bubble contrast study negative for right to left interatrial shunt. Mild to moderate (1-2+) eccentric tricuspid valve insufficiency. Ordering Physician: Amy Quiroz Referring Physician: Flako Azul Performed By: Marly Gross RDCS Operations: None Procedures: 2-D Echocardiogram, EKG Summary of Care Provided: Patient seen and examined on the day of discharge and appeared to be stable to be discharged home. He denied any more dizziness or vertigo. Denied slurred speech, blurred vision, focal arm or leg weakness. His vital signs are stable. He was ambulated and he did very well without any symptoms. The patient is a 83 year old M admitted because of dizziness which was described as spinning sensation as well as difficulty finding words. He was admitted for probable TIA. CT scan brain without contrast revealed no evidence of acute infarct or hemorrhage. Chest x-ray showed no acute findings. CTA head and neck revealed no evidence of hemodynamically significant vascular disease or stenosis. EKG revealed normal sinus rhythm without evidence of acute ischemic changes or cardiac arrhythmias. Patient had no focal deficit on physical examination. His routine blood work was remarkable for mild hyponatremia and hypokalemia. Both, potassium and sodium were replaced and corrected. His troponin was negative. Lipid profile revealed total cholesterol of 146, LDL cholesterol of 89 and HDL cholesterol of 44. Patient was treated with Antivert as well as IV fluids and IV antiemetics. On the day of discharge, he had no more symptoms, no more dizziness or spinning sensation. Speech is back to normal. No focal deficit on physical examination. Acute stroke ruled out. Patient discharged home in a stable condition, discharged on aspirin 81 mg p.o. daily, discharged on Antivert 12.5 mg p.o. twice daily PRN, continued on Norvasc, plan to follow-up with PCP in 1 week. - Physical Exam Vitals/I&O's: Vital Signs Temp Pulse Resp BP Pulse Ox 97.6 F L 66 18 153/74 H 97 08/21/19 10:39 08/21/19 10:39 08/21/19 10:39 08/21/19 10:39 08/21/19 10:39 Oxygen Delivery Method Room Air Weight: 154 lb 15.759 oz Body Mass Index (BMI) 20.9 Finger Stick Blood Glucose 134 Intake and Output for Last 24 Hours 08/19/19 08/20/19 08/21/19 23:59 23:59 23:59 Intake Total 586.67 / 586.67 5 Balance 586.67 / 586.67 General: Alert, Oriented x3, Cooperative, No apparent distress HEENT: Atraumatic, PERRLA, EOMI, Normocephalic Oral: Moist Mucosa, No Gingival or Mucosal Lesions/ Ulcerations Neck: Supple, No JVD, Negative Carotid Bruits, Trachea Midline, Thyroid Normal Size and Texture Lungs: Clear to auscultation, Normal air movement, No rhonchi, No wheeze, No rales Cardiovascular: Regular rate, Regular Rhythm, Normal S1, Normal S2, PMI Normal Abdomen: Bowel Sounds Present, Soft, Non Tender, Non-Distended, No Hepato-splenomegaly Extremities: No clubbing, No cyanosis, No edema Skin: No rashes, No breakdown Lymphatic: No Cervical, Supraclavicular, or Inguinal Adenopathy Neurological: Cranial nerves II-XII grossly intact, Motor Exam 5/5 strength throughout Psych/Mental Status: Normal Affect, Appropriate Laboratory Results 08/20/19 14:45: WBC 5.6, RBC 4.67, Hgb 14.9, Hct 41.2, MCV 88.2, MCH 31.9, MCHC 36.2 H, RDW Std Deviation 39.7, RDW Coeff of Atif 12.3, Plt Count 198, MPV 9.5, Immature Gran % (Auto) 0.400, Neut % (Auto) 75.0 H, Lymph % (Auto) 16.4 L, Hays % (Auto) 7.8, Eos % (Auto) 0.2, Baso % (Auto) 0.2, Absolute Neuts (auto) 4.2, Absolute Lymphs (auto) 0.92, Nucleated RBC % 0 08/20/19 14:45: PT 13.4, INR 1.0, APTT 32.6 08/20/19 14:45: Sodium 127 L, Potassium 3.4 L, Chloride 92 L, Carbon Dioxide 27.0, Anion Gap 8, BUN 8, Creatinine 0.62 L, Estim Creat Clear Calc 57.87, Est GFR (MDRD) Af Amer 158, Est GFR (MDRD) Non-Af 131, BUN/Creatinine Ratio 12.8, Glucose 134 H, Calcium 8.7, Troponin I < 0.015 08/20/19 14:45: Hemoglobin A1c 5.8 08/20/19 19:20: Serum Osmolality 278 L 08/20/19 19:45: Urine Osmolality 92, Ur Random Sodium 21, Urine Creatinine < 13.00 08/21/19 05:12: Sodium 140, Potassium 4.1, Chloride 107, Carbon Dioxide 27.0, Anion Gap 6, BUN 9, Creatinine 0.75, Estim Creat Clear Calc 55.65, Est GFR (MDRD) Af Amer 128, Est GFR (MDRD) Non-Af 106, BUN/Creatinine Ratio 12.0, Glucose 98, Calcium 8.2 L, Magnesium 2.0, Total Bilirubin 0.50, AST 12 L, ALT 43, Alkaline Phosphatase 41 L, Total Protein 6.0 L, Albumin 3.1 L, Globulin 2.9, Albumin/Globulin Ratio 1.1, Triglycerides 64, Cholesterol 146, LDL Cholesterol 89, VLDL Cholesterol 13, HDL Cholesterol 44 Discharge Activity: Return to Normal Activity Weight Bearing Status: Weight bearing as tolerated Call your doctor if you observe: Fever of 101 or Higher, Shortness of breath, Dizziness, Fainting spells, Chest pain, Increased palpitations (irregular heartbeat), Uncontrolled pain Home Medications: Medications to take at Discharge Amlodipine [Norvasc] 10 mg PO DAILY 08/20/19 Meclizine HCl [Antivert] 12.5 mg PO BID PRN PRN 08/20/19 Aspirin [Aspirin, Baby] 81 mg PO DAILY@0800 #90 tab.chew 08/21/19 Following Prescrptions Were Given to Patient: Aspirin [Aspirin, Baby] 81 mg PO DAILY@0800 #90 tab.chew Transmission Status: Received by [facility]/pharmacy #[id number] Primary Care Physician: Amy Garsia NP-C [Primary Care Provider] - Please follow up with your Primary Care Physician in: 1 WEEK. Disposition: Home Minutes spent on discharge:: 26 Patient Condition:: Stable Medical Necessity - Tobacco Use Smoking Status: Never smoker Tobacco Use: Non-smoker Meaningful Use Info Meaningful Use Diagnoses (Choose all that apply): None applicable OBSV E&M: 90622 Observation care discharge
== END 2019-08-21 09:40 | disposition home or self-care (01) ==
LOC: ED 15:43 → PCU 19:00
PROVIDERS: Emergency Medicine; Admitting Provider Internal Medicine; Emergency Provider Emergency Medicine; PCP Nurse Practitioner; Visit Provider Hospitalist
DX: R42 Dizziness and giddiness (principal); E87.6 Hypokalemia; E87.1 Hypo-osmolality and hyponatremia; I10 Essential (primary) hypertension; I27.20 Pulmonary hypertension, unspecified; R47.01 Aphasia; Z87.891 Personal history of nicotine dependence; Z79.899 Other long term (current) drug therapy; R73.9 Hyperglycemia, unspecified; I08.3 Combined rheumatic disorders of mitral, aortic and tricuspid valves; R94.31 Abnormal electrocardiogram [ECG] [EKG]; R51 Headache; R29.700 NIHSS score 0
CPT/HCPCS: 36415; 70450; 70496; 70498; 71045; 80048; 80053; 80061; 82570; 83036; 83735; 83930; 83935; 84300; 84484; 85025; 85610; 85730; 93005; 93306; 94762; 96360; 96361; 97162; 99218; 99285; J7030; Q9967; A4216; G0378

== ENCOUNTER 2022-05-18 21:34 | Emergency (ER) | payer OTHER, SELFPAY ==
[2022-05-18 21:35] VITALS: BP 172/64; PULSE 81; RESP 16; TEMP 36.8; O2SAT 96; BMI 19.6
--- NOTE | 2022-05-18 23:01 | CT_ITS ---
EXAM: CT brain without contrast HISTORY: right frontal headache TECHNIQUE: No intravenous contrast. A radiation dose optimization technique was used for this scan. COMPARISON: Head CT August 20, 2019. LIMITATIONS: None. BRAIN: Mild involutional change. Normal garcia/white matter differentiation. Calcification in the basal ganglia bilaterally, more so on the left including the left caudate head. The basal ganglia calcifications are grossly stable since the prior exam. VENTRICLES: No hydrocephalus. EXTRA-AXIAL SPACES: No acute hemorrhage. CALVARIUM/SKULL BASE: No acute fracture. FACE/SINUSES: No significant abnormality. SOFT TISSUES: Normal. OTHER: None. CONCLUSION: No acute intracranial abnormality. Electronically Signed: Dung Duran MD at 23:51 EST , CT/Brain/Head without Contrast IMPRESSION: undefined
[2022-05-19] MEDS: Acetaminophen 500 MG Tablet 1000 MG PO (00:29)
[2022-05-19 00:31] VITALS: BP 132/60; PULSE 81; RESP 14; O2SAT 95
--- NOTE | 2022-05-19 00:58 | EDS_ITS ---
HPI History of Present Illness Chief Complaint: Headache Informant: patient Onset/Context/Timing Onset: Today Context: Gradual Onset Current Severity: Moderate Maximum Severity: Moderate Narrative Narrative: Patient presents secondary to a right frontal headache. He states it started sometime during the night last night he woke up with it this morning. He has had a lump on his scalp near this area for quite some time but is never been painful before. He denies recent trauma or injury. He denies vision changes, nausea, light sensitivity. He has not taken anything for his headache. [facility] Medical History HTN (hypertension) TIA (transient ischemic attack) Home Medications amlodipine 10 mg tablet 10 mg PO DAILY blood pressure 08/20/19 [History Last Taken 08/19/19] Allergy/AdvReac Type Severity Reaction Status Date / Time No Known Allergies Allergy Verified 08/20/19 14:08 Social History Smoking Status: Never smoker ROS ROS ED Constitutional Constitutional ED: Denies chills or fever(s) Eyes Eyes: Denies change in vision or discharge from eye(s) ENT ENT ED: Denies discharge from eye(s), rhinorrhea or sore throat Cardiovascular Cardiovascular: Denies chest pain or palpitations Respiratory/Chest Respiratory/Chest: Denies cough or dyspnea Gastrointestinal Gastrointestinal: Denies abdominal pain, nausea or vomiting Genitourinary Genitourinary ED: Denies dysuria Musculoskeletal Musculoskeletal: Denies back pain or extremity pain Integumentary Denies Abrasions or rash Neurologic Neurologic: Reports headache(s); Denies weakness Psychiatric Psychiatric: Denies anxiety or depression Allergic/Immunologic Allergic/Immunologic ED: Denies lip swelling or urticaria EXAM Physical Exam Const Vital Signs: 05/18/22 21:35 05/18/22 21:35 05/19/22 00:31 Temperature 98.2 F 98.2 F Temperature Source Temporal Temporal Pulse Rate 81 81 81 Respiratory Rate 16 16 14 Blood Pressure 172/64 H 172/64 H 132/60 H Blood Pressure Mean 100 100 84 Pulse Ox 96 96 95 Oxygen Delivery Method Room Air Room Air Room Air 05/19/22 01:02 Temperature Temperature Source Pulse Rate 74 Respiratory Rate 23 H Blood Pressure 134/60 H Blood Pressure Mean Pulse Ox 94 Oxygen Delivery Method Positive well nourished and well developed General Appearance ED: well developed HEENT Reports normocephalic and head/scalp atraumatic HEENT Narrative: Small palpable lipoma on the right frontal scalp. Skin itself is nontender with palpation over this area. No overlying skin change. Eyes PERRL and EOMs intact bilaterally Neck supple Chest Wall inspection of chest normal and palpation of chest normal Resp normal respiratory effort and clear to auscultation bilaterally Cardio regular rate and regular rhythm GI normal to inspection, nondistended, normoactive bowel sounds Palpation: soft Extremity normal to inspection Neuro oriented x3 Neuro Narrative: No focal neurologic deficit Sensorium / Orientation: alert Psych mental status grossly normal Skin no rashes or lesions noted MDM MDM MDM Narrative Medical decision making narrative: Patient was given Tylenol for headache. CT scan of the head obtained. Radiography Diagnostic Testing: Clinical Impression(s) from Imaging Studies Brain CT 05/18/22 23:01 IMPRESSION: undefined CT head CONCLUSION: No acute intracranial abnormality. Treatment and Re-Evaluation Narrative: CT scan of the head is unremarkable with no acute intracranial abnormality. Patient is reassured with this. He does have some improvement in his headache with the Tylenol. He will continue supportive care at home. Discharge Plan Triage Chief Complaint: Headache ED Provider: Purvi Tse Dx/Rx/DC Orders Clinical Impression: Cephalgia Instructions: ED Headache Unspecified Prescriptions: No Action amlodipine 10 MG tablet 10 mg PO DAILY Primary Care Provider: Care Physician,No Primary Referrals: Care Physician,No Primary [Primary Care Provider] - Activity Restrictions/Additional Instructions: Follow-up with your doctor in 1 week if not improving. He can take Tylenol or ibuprofen for headache. Return for worsening symptoms. Disposition Disposition: Home, Self Care Discharge Date/Time: 05/19/22 01:07
[2022-05-19 01:02] VITALS: BP 134/60; PULSE 74; RESP 23; O2SAT 94
== END 2022-05-19 01:07 | disposition home or self-care (01) ==
PROVIDERS: Emergency Provider Emergency Medicine; Visit Provider Emergency Medicine
DX: R51.9 Headache, unspecified (principal); I10 Essential (primary) hypertension; D17.0 Benign lipomatous neoplasm of skin and subcutaneous tissue of head, face and neck; Z79.899 Other long term (current) drug therapy; Z86.73 Personal history of transient ischemic attack (TIA), and cerebral infarction without residual deficits
CPT/HCPCS: 70450; 99283; A4216

== ENCOUNTER → 2022-06-11 | Outpatient (CLI) | payer SELFPAY, OTHER ==
--- NOTE | 2022-06-11 09:42 | ECHOD_ITS ---
Reason For Study: BROOKE Procedure This was a 2D Doppler, Color Flow transthoracic echocardiogram. Exam performed in department. Left Ventricle Normal LV size. Left ventricular systolic function is normal. The estimated ejection fraction is 65 %. No evidence for diastolic dysfunction. No regional wall motion abnormalities noted. Right Ventricle Normal RV size. Normal systolic function. Atria Normal left atrium. Normal right atrium. No doppler evidence for ASD. Mitral Valve There is mild mitral annular calcification. Mild diffuse mitral valve thickening. The mitral papillary muscle appears thickened and/or calcified. Mild-Moderate (1-2+) mitral valve insufficiency. Tricuspid Valve Normal tricuspid valve. Mild tricuspid valve insufficiency. Right ventricular systolic pressure estimated to be 33 mmHg. Aortic Valve Trisinus/trileaflet aortic valve. Normal aortic valve. Pulmonic Valve The pulmonic valve is not well visualized. Great Vessels The aortic root is not well visualized. Pericardium/Pleural No pericardial effusion. MMode/2D Measurements & Calculations LVIDd: 4.8 cm IVSd: 0.89 cm LA dimension: 3.2 cm LVIDs: 2.7 cm LVPWd: 0.89 cm RVDd: 3.8 cm FS: 42.5 % LAV(MOD-bp): 51.0 ml LA A4 area: 14.4 cm2 RA A4 area: 12.8 cm2 LAV(MOD-bp) Indexed: 27.5 ml/m2 LAV(MOD-sp2): 56.7 ml LAV(MOD-sp4): 35.8 ml Time Measurements MV dec time: 0.29 sec Doppler Measurements & Calculations MV E max domingo: 96.6 cm/sec Lat Peak E' Domingo: 9.5 cm/sec Med Peak E' Domingo: 9.2 cm/sec MV A max domingo: 118.7 cm/sec E/E' lat: 10.1 E/E' med: 10.5 MV E/A: 0.81 MV V2 max: 120.9 cm/sec MV P1/2t max domingo: 122.4 cm/sec Ao V2 max: 135.2 cm/sec MV max P.9 mmHg MV P1/2t: 101.7 msec Ao max P.3 mmHg MV V2 mean: 67.2 cm/sec MV dec slope: 352.6 cm/sec2 MV mean P.2 mmHg MVA(P1/2t): 2.2 cm2 MV V2 VTI: 38.8 cm LV V1 max: 95.1 cm/sec MR max domingo: 509.6 cm/sec PA V2 max: 94.4 cm/sec LV V1 max P.6 mmHg MR max P.9 mmHg PA V2 mean: 69.8 cm/sec TR max domingo: 275.9 cm/sec TR max P.4 mmHg ECHO/Echo Complete Interpretation Summary Left ventricular systolic function is normal. The estimated ejection fraction is 65 %. There is mild mitral annular calcification. Mild diffuse mitral valve thickening. The mitral papillary muscle appears thickened and/or calcified. Mild-Moderate (1-2+) mitral valve insufficiency. Mild tricuspid valve insufficiency. Right ventricular systolic pressure estimated to be 33 mmHg. No evidence for diastolic dysfunction. Ordering Physician: Diana Edwards Performed By: Ruben Roberts RCS
== END | disposition home or self-care (01) ==
PROVIDERS: PCP Nurse Practitioner Family; Visit Provider Nurse Practitioner Family
DX: R06.09 Other forms of dyspnea (principal)
CPT/HCPCS: 93306

== ENCOUNTER 2025-03-13 15:13 | Inpatient (IN) | payer OTHER, SELFPAY ==
[2025-03-13 15:13] VITALS: BP 220/150; PULSE 84; RESP 16; TEMP 36.9; O2SAT 100
[2025-03-13 15:58] LABS: Mucous, Urine 0 SEEN /hpf (<or=2+)
[2025-03-13 16:05] LABS: Color, Urine Red (Yellow); Glucose, Dipstick Normal (Normal); Ketone-Dipstick Negative (Negative); Leukocyte Esterase-Dipstick 25 /ul (Negative); Nitrite-Dipstick Negative (Negative); Occult Blood-Urine 250 /ul (Negative); Protein-Dipstick 30 mg/dl (Negative); Specific Gravity, Urine 1.005 (1.002-1.030); Urine Bilirubin Dipstick Negative (Negative)
[2025-03-13 16:19] LABS: Red Blood Cells-Urine > 100 SEEN /hpf (0-5); Squamous Epithelial Cells - UA 0-5 SEEN /hpf (0-5)
--- NOTE | 2025-03-13 16:29 | CM.ED ---
Social Work Date of referral: 03/13/25 Reason for referral: No Primary Care Physician (PCP) on file. Referred by: Social Work Identification. Patient provided consent to social work visit. Patient stated he used to see Dr. Diana Edwards however hasn't seen her in about a year and a half and stated she left to go to the [facility] which oncology social worker provided him a written hand-out for. Ground Operations Superintendent educated patient on the importance of getting connected to a PCP as well as routine scheduled visits which patient verbalized understanding of. Purvi Mauricio, BUILDING CONSTRUCTION SUPERVISOR, STATISTICAL CONSULTANT
[2025-03-13 16:33] LABS: Anion Gap 13 (5-15); BUN 28 mg/dL (4-19); BUN/Creat Ratio 12.7 RATIO (10-20); Calcium,Total 8.4 mg/dL (7.6-11.0); Carbon Dioxide 22.8 mmol/L (21.0-32.0); Chloride 94 mmol/L (98-108); Glucose 112 mg/dL (70-99); Potassium 4.1 mmol/L (3.3-5.1)
[2025-03-13 17:13] VITALS: BP 128/70; PULSE 65; O2SAT 100
--- NOTE | 2025-03-13 17:24 | EX.ED.DYSGE1 ---
HPI History of Present Illness Chief Complaint: Complaint Detail of Chief Complaint: Difficulty urinating for the past 1 week. Informant: patient and spouse/S.O. Onset/Context/Timing Onset: Weeks Context: Sudden Onset Timing: Continuous and Waxes and wanes Quality: Urinating small amounts and frequently Location: Current Severity: Severe Maximum Severity: Severe Worsened by: Now complaining of pain Relieved by: Placement of Pugh Associated Symptoms Associated Symptoms: Elevated blood pressure, asymptomatic Narrative Narrative: patient is a 89-year-old male who presents with difficulty urinating for the past week. He does have a history of enlarged prostate. He has seen Dr. Odonnell in the past. He states he takes natural supplements for his prostate. He is on no prescribed medication. He does not have history of TURP. Patient denies fever, chills night sweats. Patient denies dysuria or hematuria. He does endorse going small amounts and nocturia. He denies back or flank pain. Patient is on no medication other than amlodipine. He has no medication allergies. Prior similar symptoms: No Recent Illness/Hospitalization: No [facility] Medical History TIA (transient ischemic attack) HTN (hypertension) Home Medications ?Medication ?Instructions ?Recorded ?Last Taken ?Type amlodipine 10 mg tablet 10 mg PO DAILY blood pressure 08/20/19 08/19/19 History Allergy/AdvReac Type Severity Reaction Status Date / Time No Known Allergies Allergy Verified 08/20/19 14:08 Social History housing: house Smoking Status: Never smoker ROS ROS ED Constitutional Constitutional ED: Denies chills, fever(s), subjective or sweats Cardiovascular Cardiovascular: Denies chest pain or palpitations Respiratory/Chest Respiratory/Chest: Denies dyspnea or dyspnea on exertion Gastrointestinal Gastrointestinal: Reports abdominal pain; Denies nausea or vomiting Genitourinary Genitourinary ED: Reports urinary frequency and other Details: Urgency and going only small amounts. ; Denies dysuria or hematuria Musculoskeletal Musculoskeletal: Denies arthralgias or myalgias Neurologic Neurologic: Denies headache(s) or paresthesias Psychiatric Psychiatric: Denies anxiety or depression Endocrine Endocrinology: Denies cold intolerance or heat intolerance EXAM Physical Exam Const Vital Signs: 03/13/25 15:13 03/13/25 17:13 Temperature 98.4 F Temperature Source Temporal Pulse Rate 84 65 Respiratory Rate 16 Blood Pressure 220/150 H 128/70 H Blood Pressure Mean 173 89 Pulse Ox 100 100 Oxygen Delivery Method Room Air Positive well nourished and well developed Constitutional Narrative: Patient is in discomfort. His bladder is distended. Bladder scan indicates 1000 to 1300 cc of urine. General Appearance ED: well developed; Negative for pallor HEENT Reports dry mucous membranes HEENT Narrative: Head is atraumatic normocephalic. Ears are normal. Nares are patent Mouth ED: Yes dry mucous membranes Mouth: dry mucous membranes Eyes PERRL and EOMs intact bilaterally General Eye ED: Negative for pale conjunctiva or scleral icterus Neck no lymphadenopathy, supple and no JVD Resp normal respiratory effort and clear to auscultation bilaterally Cardio regular rate, regular rhythm, S1 normal heart sound, S2 normal heart sound and no murmurs GI normal to inspection, nondistended, normoactive bowel sounds and non-distended; Negative for non-tender, hepatosplenomegaly or no masses GI Narrative: Patient has distended bladder to percussion. Back/Spine no CVA tenderness Extremity normal to inspection General Extremety ED: Negative for tenderness Neuro oriented x3 and CN's II-XII intact bilaterally Sensorium / Orientation: alert Skin no rashes or lesions noted, no wounds and skin turgor normal General Skin Exam: elasticity normal; Negative for jaundice or pallor MDM MDM MDM Narrative Medical decision making narrative: Suspect patient's elevated blood pressure due to urinary retention. Since he has greater 1000 cc Pugh was ordered. Urinalysis was ordered as well as BMP because of concern for obstructive uropathy. CBC was not at obtained since he has no infectious symptoms. Suspect this is due to his enlarged prostate that he has been treating with natural remedies. Lab Data Attestation: I reviewed the patient's lab results. Lab results narrative: There are no recent creatinine levels. Most recent is 2019 and his creatinine at that time is 0.75. Labs: Laboratory Results - last 24 hr 03/13/25 03/13/25 15:54 15:56 Sodium 130 L Potassium 4.1 Chloride 94 L Carbon Dioxide 22.8 Anion Gap 13 BUN 28 H Creatinine 2.17 H Est GFR (MDRD) Non-Af 28 L BUN/Creatinine Ratio 12.7 Glucose 112 H Calcium 8.4 Urine Color Red Urine Clarity Clear Urine pH 7.0 Ur Specific [place] 1.005 Urine Protein 30 H Urine Glucose (UA) Normal Urine Ketones Negative Urine Occult Blood 250 H Urine Nitrite Negative Urine Bilirubin Negative Urine Urobilinogen Normal Ur Leukocyte Esterase 25 H Urine RBC > 100 SEEN Urine WBC 0-5 SEEN Ur Squamous Epith Cells 0-5 SEEN Amorphous Sediment 1+ Urine Bacteria RARE Urine Mucus 0 SEEN Treatment and Re-Evaluation :: I was informed the Dr. Odonnell was not on-call today but will be available tomorrow. In light of this we will contact hospitalist patient be admitted for obstructive uropathy for further workup and consultation to Dr. Odonnell. Discharge Plan Dx/Rx/DC Orders Clinical Impression: Acute urinary retention, Lower obstructive uropathy, Elevated blood pressure reading, Hyponatremia, Gross hematuria Disposition Disposition: Acute Care Hospital [facility]
[2025-03-13 17:37] VITALS: BP 128/70; PULSE 65; RESP 20; TEMP 36.8; O2SAT 100
--- NOTE | 2025-03-13 17:40 | PCM.HP.STD ---
HPI - General General Date of Admission: 03/13/25 Date of Service: 03/13/25 Chief Complaint: Acute urinary retention HPI Narrative WALDO MCGHEE, is a 89 M who presented to [facility] ED on 03/13/2025 with acute urinary retention. Patient is an Sabianism male and lives at home with his , has good functional signs at baseline. Has minimal medical history and is on no home medications at this time. He reports more difficulty urinating over the past few months and especially over the past week. He did see Dr. Odonnell for BPH about 4 to 5 years ago and opted for no intervention at that time. He has apparently been taking natural supplements for his prostate. On arrival to the ED his BP was in the 220s over 140s, was otherwise in normal sinus rhythm and stable on room air at rest. Bladder scan showed greater than 1000 cc in his bladder. Pugh catheter was placed and he had approximately 1200 mL of urine removed. Labs notable for creatinine 2.17, baseline around 0.7. ED attempted to contact Dr. Odonnell but he is not available this weekend. However, he will be available again tomorrow. Thus, hospitalist was contacted for admission. I saw the patient at bedside in the ED, daughter was present. Patient was mildly fatigued appearing but otherwise sitting back comfortably in bed, conversing normally, in no acute distress. He is tolerating the Pugh catheter fairly well at this time. Denies any other acute pain or discomfort. Notably his blood pressure came down to the 120s systolic after Pugh catheter placement. No other acute concerns at this time. Will be admitted for further management. [facility] Medical History TIA (transient ischemic attack) HTN (hypertension) Home Medications ?Medication ?Instructions ?Recorded ?Last Taken ?Type NK 03/13/25 Unknown History Allergy/AdvReac Type Severity Reaction Status Date / Time No Known Allergies Allergy Verified 08/20/19 14:08 Social History housing: house Smoking Status: Never smoker ROS Constitutional Constitutional: Reports fatigue; Denies chills, fever(s) or weakness Eyes Eyes: Denies change in vision Cardiovascular Cardiovascular: Denies chest pain Respiratory/Chest Respiratory/Chest: Denies shortness of breath at rest Gastrointestinal Gastrointestinal: Denies abdominal pain, nausea or vomiting Genitourinary Genitourinary: Reports difficulty urinating Musculoskeletal Musculoskeletal: Denies arthralgias or myalgias Neurologic Neurologic: Denies dizziness, focal weakness or headache(s) Vital Signs Vital Signs Vital Signs: 03/13/25 15:13 03/13/25 17:13 03/13/25 17:37 Temperature 98.4 F 98.3 F Temperature Source Temporal Pulse Rate 84 65 65 Respiratory Rate 16 20 H Blood Pressure 220/150 H 128/70 H 128/70 H Blood Pressure Mean 173 89 89 Pulse Ox 100 100 100 Oxygen Delivery Method Room Air Weight Weight: 66.9 kg Body Mass Index (BMI) 20.0 Physical Exam Const alert, oriented x3, no apparent distress and average body habitus Constitutional Narrative: Pleasant elderly Sabianism male, thin and mildly fatigued appearing, otherwise sitting back comfortably in bed, conversing normally, in no acute distress. General Appearance: cooperative and comfortable HEENT normocephalic, head/scalp atraumatic, hearing grossly normal bilaterally, nasal mucous membranes and turbinates normal and moist oral mucous membranes Eyes PERRL, EOMs intact bilaterally and conjunctivae normal Neck full ROM Chest inspection of chest normal Resp normal respiratory effort, normal air movement, no use of accessory muscles and clear to auscultation bilaterally Cardio regular rate, regular rhythm, no murmurs and peripheral pulses 2+ throughout GI normal to inspection, nondistended, normoactive bowel sounds, soft to palpation, non-tender and non-distended no CVA tenderness Narrative: Mild darkish tinged urine noted from catheter. Bladder / Kidney Exam: catheter in place and bladder normal to palpation Back/Spine normal ROM Extremity normal to inspection, full ROM and no pedal edema Skin no rashes or lesions noted Psych mental status grossly normal Results Lab / Micro Data 03/13/25 15:56 Labs: Laboratory Results - last 24 hr 03/13/25 15:54: Urine Color Red, Urine Clarity Clear, Urine pH 7.0, Ur Specific [place] 1.005, Urine Protein 30 H, Urine Glucose (UA) Normal, Urine Ketones Negative, Urine Occult Blood 250 H, Urine Nitrite Negative, Urine Bilirubin Negative, Urine Urobilinogen Normal, Ur Leukocyte Esterase 25 H, Urine RBC > 100 SEEN, Urine WBC 0-5 SEEN, Ur Squamous Epith Cells 0-5 SEEN, Amorphous Sediment 1+, Urine Bacteria RARE, Urine Mucus 0 SEEN 03/13/25 15:56: Sodium 130 L, Potassium 4.1, Chloride 94 L, Carbon Dioxide 22.8, Anion Gap 13, BUN 28 H, Creatinine 2.17 H, Est GFR (MDRD) Non-Af 28 L, BUN/Creatinine Ratio 12.7, Glucose 112 H, Calcium 8.4 Assessment & Plan Assessment/Plan (1) Acute urinary retention: PLAN: Plan Patient is an 89-year-old male who presented to [facility] ED on 03/13/2025 with acute urinary retention. 1. Acute urinary retention, history of BPH with obstructive symptoms ? Admit under inpatient status to [facility]. Urology consulted. Has history of BPH with obstructive symptoms and saw Dr. Odonnell for this about 4 to 5 years ago. Opted for no intervention at that time and has been taking natural supplements for the prostate since then. Pugh catheter placed in the ED with approximately 1200 cc of urine removed. Suspect retention is secondary to worsening BPH. Will start Flomax 0.4 mg at night. Renal/bladder ultrasound ordered. Will keep n.p.o. at midnight for possible procedure tomorrow. Appreciate further urology recommendations. 2. JERI ? Creatinine 2.17 on admit, baseline around 0.7. Suspect postobstructive due to urinary retention from BPH as above. Renal/bladder ultrasound ordered and urine sodium and creatinine ordered to calculate FeNa. Follow-up a.m. BMP and monitor urine output. 3. Mild hyponatremia ? Sodium 130, chloride 94 on admit. Suspect secondary to mild degree of dehydration. Will give 1 L of IV fluids overnight, follow-up a.m. sodium level. 4. Hypertension ? On chart review, patient was diagnosed with hypertension back in 2019 when he presented to the hospital with hypertensive urgency. Echo then showed EF 65% with mild left tracheal hypertrophy. He was discharged home at that time with amlodipine 10 mg daily and Lopressor 25 mg twice daily. He currently is not on any blood pressure medications. BP severely elevated to the 220s systolic on arrival to the ED but improved to the 120s systolic once Pugh catheter was placed. Will monitor BP closely and hold off on starting any new medications for now. DVT prophylaxis: Heparin subcu CODE STATUS: Full code, verified Expected disposition: Home, TBD Total clinical time spent by myself addressing the patient's medical issues, reviewing all the data, and collaborating with patient's care team: 59 minutes. Charges/Coding Visit Charges Inpatient E&M: 33610 Init Hosp L2
[2025-03-13 18:04] LABS: Hematocrit 36.7 % (40-54); Hemoglobin 12.8 g/dL (13.0-16.5); Immature Granulocytes Count 0.020 X10^3/uL (0.0-0.0); Mean Corp Hgb Conc 34.9 g/dL (32-36); Mean Corpuscular Volume 89.7 fL (80-94); Mean Platelet Vol. 9.6 fl (6.2-12.0); NRBC Flagged by Analyzer 0 % (0-5); Platelet Count 195 K/mm3 (150-450); RBC Distribution Width CV 12.8 % (11.6-14.6); RBC Distribution Width SD 42.0 fl (35.1-43.9); Red Blood Count 4.09 M/mm3 (4.6-6.2); White Blood Count 5.5 K/mm3 (4.4-11.0)
[2025-03-13 18:43] VITALS: BP 152/82; PULSE 79; RESP 18; TEMP 36.4; O2SAT 96
[2025-03-13] MEDS: 0.9% Normal Saline (1000mL) 1,000 ML 250 ML IV (20:06)
--- NOTE | 2025-03-14 | US_ITS ---
PROCEDURE: KIDNEY AND BLADDER 03/14/2025 REASON FOR EXAM: ACUTE URINARY RETENTION W/ JERI TECHNIQUE: Procedure Code: USKI Modality: US Procedure: KIDNEY AND BLADDER COMPARISON: None FINDINGS: Right kidney measures 10.9 x 5.7 x 5.1 cm in the left 10.7 x 4.6 x 5.0 cm. There is mild hydronephrosis of the right and left kidneys. There is no visible renal mass or stone. A catheter is seen in the bladder. There is a irregular bladder wall thickening with a bladder mass not excluded. There is no free fluid. US/Kidney and Bladder IMPRESSION: There is mild hydronephrosis of the right and left left kidneys. A catheter is seen in the bladder. There is a irregular bladder wall thickening with a bladder mass not excluded. Direct visualization is recommended. Consider pre and postcontrast CT correlation. Reading Location: [facility]
[2025-03-14 02:16] VITALS: BP 149/74; PULSE 72; RESP 18; TEMP 36.7; O2SAT 95
[2025-03-14 07:21] VITALS: O2SAT 96
[2025-03-14 07:31] VITALS: BP 151/75; PULSE 53; RESP 17; TEMP 36.7; O2SAT 93
[2025-03-14] MEDS: Heparin Injection (Vial) 5,000 UNIT/ML VIAL 5000 UNIT SC (09:26)
[2025-03-14 10:44] LABS: Anion Gap 12 (5-15); BUN 15 mg/dL (4-19); BUN/Creat Ratio 12.3 RATIO (10-20); Calcium,Total 9.0 mg/dL (7.6-11.0); Carbon Dioxide 27.2 mmol/L (21.0-32.0); Chloride 98 mmol/L (98-108); Estimated Creatinine Clearance 38.84 ml/min (50-250); Glucose 138 mg/dL (70-99); Potassium 3.7 mmol/L (3.3-5.1)
--- NOTE | 2025-03-14 11:28 | CASEMGMT ---
RAMBO LE Assessment: Face to Face with pt for initial transition planning/care coordination assessment. RN MIMI introduced self and role at [facility], pt voices understanding and consents to assessment. Pt is A&O x4 and answers all questions appropriately at this time. Pt lying in bed in no distress. Care providers, pharmacy, and demographics verified/updated. Strata: 1 Admitting Dx: Acute urinary retention with JERI PCP: Previously saw Abner Edwards, she is now at [facility]. ED SW provided pt with PCP and [facility] information. Specialists: Denies Preferred Pharmacy: [facility] Insurance: [employer] Prescription Benefit: yes LNOK: , Azra; Daughter, Cat Living Arrangements: Pt lives with and son, daughter lives in home next door. Pt has 2 steps to enter into 1 level home with a basement. ADLs: Pt is I with ADLs and IADLs at baseline. Transportation: Pt denies concerns with transportation, calls for a city driver when needed. DME: Shower bench, walker, cane, w/c HHC/SNF: Denies Hx of. Pt states no concerns with going home at time of dc. Pt states no further concerns/needs. CM to follow. Advised pt to ask CM if any further question/concerns/needs arise, voices understanding. Pt Goal: Home Plan: Home with family assistance. 6 clicks 24. Janny RICKS CM
--- NOTE | 2025-03-14 11:47 | CON.PCM_ITS ---
Assessment & Plan Assessment/Plan (1) Acute urinary retention: (2) Gross hematuria: PLAN: Follow-up in the office for a cystoscopy to evaluate the bladder and prostate Home with Pugh catheter and he can go home with the Flomax HPI Consult Data Date of Consult: 03/14/25 HPI Narrative Reason for Consultation: Retention of urine HPI Narrative: WALDO MCGHEE, is a 89 M who presents to the hospital with retention of urine he had a catheter placed is not draining clear yellow urine from the Pugh catheter has been started on Flomax which is appropriate ultrasound was done of his kidneys and bladder. It does show a very thickened bladder possible mass in the bladder but the urine is clear so what the sediment for an outpatient cystoscopy and for now he will to go home with a Pugh catheter continue with Flomax patient and his family was instructed to call my office and we will do a cystoscopy in the office and a voiding trial he can go with Flomax and go home with a catheter for now. Call me with questions [facility] Medical History TIA (transient ischemic attack) HTN (hypertension) Home Medications ?Medication ?Instructions ?Recorded ?Last Taken ?Type NK 03/13/25 Unknown History Allergy/AdvReac Type Severity Reaction Status Date / Time No Known Allergies Allergy Verified 08/20/19 14:08 Social History housing: house Smoking Status: Never smoker ROS Constitutional Constitutional: Denies chills, fever(s) or malaise Eyes Eyes: Denies blurry vision or change in vision ENT HEENT: Reports none Cardiovascular Cardiovascular: Denies chest pain or palpitations Respiratory/Chest Respiratory/Chest: Denies cough or shortness of breath with exertion Gastrointestinal Gastrointestinal: Denies abdominal pain, constipation or diarrhea Musculoskeletal Musculoskeletal: Denies back pain, joint stiffness or joint swelling Integumentary Integumentary: Denies dry skin, jaundice, lesions or rash Neurologic Neurologic: Denies confusion, syncope or weakness Psychiatric Psychiatric: Reports none; Denies anxiety or depression Endocrine Endocrinology: Denies excessive sweating, fatigue or flushing Hematologic/Lymphatic Hematologic/Lymphatic: Denies anemia, easy bleeding or easy bruising Lab / Micro Data 03/13/25 17:58 03/14/25 10:03 Labs: Laboratory Results - last 24 hr 03/13/25 15:54: Urine Color Red, Urine Clarity Clear, Urine pH 7.0, Ur Specific [place] 1.005, Urine Protein 30 H, Urine Glucose (UA) Normal, Urine Ketones Negative, Urine Occult Blood 250 H, Urine Nitrite Negative, Urine Bilirubin Negative, Urine Urobilinogen Normal, Ur Leukocyte Esterase 25 H, Urine RBC > 100 SEEN, Urine WBC 0-5 SEEN, Ur Squamous Epith Cells 0-5 SEEN, Amorphous Sediment 1+, Urine Bacteria RARE, Urine Mucus 0 SEEN, Ur Random Sodium 64, Urine Creatinine 22.20 L 03/13/25 15:56: Sodium 130 L, Potassium 4.1, Chloride 94 L, Carbon Dioxide 22.8, Anion Gap 13, BUN 28 H, Creatinine 2.17 H, Est GFR (MDRD) Non-Af 28 L, BUN/Creatinine Ratio 12.7, Glucose 112 H, Calcium 8.4 03/13/25 17:58: WBC 5.5, RBC 4.09 L, Hgb 12.8 L, Hct 36.7 L, MCV 89.7, MCH 31.3, MCHC 34.9, RDW Std Deviation 42.0, RDW Coeff of Atif 12.8, Plt Count 195, MPV 9.6, Immature Gran % (Auto) 0.400, Neut % (Auto) 62.6, Lymph % (Auto) 24.2, [place] % (Auto) 11.3 H, Eos % (Auto) 1.3, Baso % (Auto) 0.2, Absolute Neuts (auto) 3.4, Absolute Lymphs (auto) 1.33, Nucleated RBC % 0 03/14/25 10:03: Sodium 137, Potassium 3.7, Chloride 98, Carbon Dioxide 27.2, Anion Gap 12, BUN 15, Creatinine 1.22 H, Estim Creat Clear Calc 38.84 L, Est GFR (MDRD) Non-Af 57 L, BUN/Creatinine Ratio 12.3, Glucose 138 H, Calcium 9.0 Imaging Radiology Impression Renal Ultrasound 03/14/25 00:00 IMPRESSION: There is mild hydronephrosis of the right and left left kidneys. A catheter is seen in the bladder. There is a irregular bladder wall thickening with a bladder mass not excluded. Direct visualization is recommended. Consider pre and postcontrast CT correlation. Reading Location: [facility]
--- NOTE | 2025-03-14 11:48 | DCINST_ITS ---
Discharge Instructions DC O2, CPAP, BIPAP needs Home O2 Discharge instructions: No Dressing / Incision Discharge Activity: Return to Normal Activity and May Not Drive (while taking narcotic pain medications.) Dressing / Incision Call your doctor if you observe: Fever of 101 or Higher Follow Up Care Please Follow Up With: Balwinder Odonnell MD When: Call [phone] for an appointment Test Results: Test results from this visit will be discussed in further detail at your follow- up appointment, if applicable. Discharge Plan Admission Admit Date/Time: 03/13/25 17:40 Attending Provider: Nik Jj Primary Care Provider: Care Physician,No Primary Consulting Providers: Sonido Hernandez; Balwinder Odonnell Discharge Orders/Prescriptions Prescriptions: No Action NK Referrals / Follow Up: Care Physician,No Primary [Primary Care Provider, Medical]
--- NOTE | 2025-03-14 12:20 | CASEMGMT ---
RN CM into pt room, pt dtr present. Pt is aware that he will dc with a catheter. He requests that the nurse review with his dtr as well. They do not anticipate any issues with this. If there is, they will ask for RN CM. Plan to dc today.
--- NOTE | 2025-03-14 13:09 | DCINST_ITS ---
Discharge Instructions DC O2, CPAP, BIPAP needs Home O2 Discharge instructions: No Dressing / Incision Discharge Activity: Return to Normal Activity Dressing / Incision Call your doctor if you observe: Fever of 101 or Higher, Shortness of breath, Dizziness, Fainting spells, Swelling in the ankles, Chest pain and Increased palpitations (irregular heartbeat) Follow Up Care Please Follow Up With: Balwinder Odonnell MD Test Results: Test results from this visit will be discussed in further detail at your follow- up appointment, if applicable. Discharge Plan Admission Admit Date/Time: 03/13/25 17:40 Attending Provider: Nik Jj Primary Care Provider: Care Physician,No Primary Consulting Providers: Sonido Hernandez; Balwinder Odonnell Instructions Patient Instructions: Leg Bag Care Dc, Pugh Catheter Male Ch, ED Pugh Catheter, Care Discharge Orders/Prescriptions Prescriptions: New tamsulosin 0.4 mg Capsule 0.4 mg PO DAILY@1730 30 Days Qty: 30 0RF Referrals / Follow Up: Balwinder Odonnell MD [Med Staff - Active Staff, Urology] - Within 1 Week Care Physician,No Primary [Primary Care Provider, Medical] Disposition Disposition (needs filled in before D/C Order can be placed): Home, Self Care
[2025-03-14 14:07] VITALS: BP 124/64; PULSE 82; RESP 17; TEMP 36.4; O2SAT 95
--- NOTE | 2025-03-14 14:09 | PCM.DC.SUM ---
Providers Date of Admission: 03/13/25 Primary Care Physician: Fiona Primary Care Phys Consultations 03/13/25 18:35 Consult: Urology Routine Consulting Provider: Balwinder Odonnell Reason for Consult: acute urinary retention EMERGENT Consult: No MD Notified: Yes Date Notified: 03/14/25 Time Notified: 08:30 Method of Notification: Verbal Reason For Visit: ACUTE URIINARY RETENTION W/JERI Diagnosis Discharge Diagnosis (1) Acute urinary retention: Status: Acute Code(s): R33.8 - Other retention of urine (2) Gross hematuria: Status: Acute Code(s): R31.0 - Gross hematuria Medications at Discharge Home Medications tamsulosin 0.4 mg capsule 0.4 mg PO DAILY@1730 30 days #30 caps 03/14/25 Hospital Course Operations None Procedures None Summary of Care Provided Minutes Spent on Discharge: 35 Hospital Course: Per HPI: WALDO MCGHEE, is a 89 M who presented to [facility] ED on 03/13/2025 with acute urinary retention. Patient is an Javier male and lives at home with his , has good functional signs at baseline. Has minimal medical history and is on no home medications at this time. He reports more difficulty urinating over the past few months and especially over the past week. He did see Dr. Odonnell for BPH about 4 to 5 years ago and opted for no intervention at that time. He has apparently been taking natural supplements for his prostate. On arrival to the ED his BP was in the 220s over 140s, was otherwise in normal sinus rhythm and stable on room air at rest. Bladder scan showed greater than 1000 cc in his bladder. Pugh catheter was placed and he had approximately 1200 mL of urine removed. Labs notable for creatinine 2.17, baseline around 0.7. ED attempted to contact Dr. Odonnell but he is not available this weekend. However, he will be available again tomorrow. Thus, hospitalist was contacted for admission. I saw the patient at bedside in the ED, daughter was present. Patient was mildly fatigued appearing but otherwise sitting back comfortably in bed, conversing normally, in no acute distress. He is tolerating the Pugh catheter fairly well at this time. Denies any other acute pain or discomfort. Notably his blood pressure came down to the 120s systolic after Pugh catheter placement. No other acute concerns at this time. Will be admitted for further management. Hospital Course: 1. JERI secondary to urinary retention with a history of BPH with obstructive symptoms and mild bilateral hydronephrosis?89 male presented to the hospital with urinary retention and abdominal pain. In that setting had significantly elevated blood pressures that resolved once Pugh catheter was placed. 1200 cc of output almost immediately. His creatinine on admission was 2.17 and after Pugh was placed it was down to 1.2, his JERI resolved. He did have mild hydronephrosis and urology was consulted and recommended outpatient follow-up for cystoscopy. He will retain the Pugh in place on discharge. Will also continue with Flomax daily. I discussed the plan for discharge today with the patient and his daughter and they both expressed understanding of the risks and benefits of going home and are okay with going home today. Patient follow-up with urology in 1 week. He was discharged sooner than expected given the rapidity of improvement. 2. He does have a diagnosis an outpatient for hypertension, though he states that he takes supplements. His hypertensive urgency resolved as the Pugh was placed and there was resolution of his urinary retention so do not plan on doing any further medications at this time. His hyponatremia also resolved with placement of his Pugh. Physical Exam Narrative General: Alert, Oriented x3, Cooperative, No apparent distress HEENT: Atraumatic, PERRLA, EOMI, Normocephalic Oral: Moist Mucosa Neck: Supple, No JVD Lungs: Diminished, Normal air movement, No rhonchi, No wheeze, No rales Cardiovascular: Regular rate, Regular Rhythm, Normal S1, Normal S2, No murmurs Abdomen: Soft, Non Tender, Non-Distended, No Hepato-splenomegaly, Pugh in place with mild hematuria Extremities: No edema, Capillary Refill Less than 3 Seconds Skin: No rashes, No breakdown Musculoskeletal: No Tenderness to Palpation of Joints or Extremities Neurological: No focal neurological deficits, moves all extremities Psych/Mental Status: Normal Affect, Appropriate Weight / BMI Weight Weight: 147 lb 7.828 oz Body Mass Index (BMI) 20.0 ABG / Lab / Microbiology Data 03/13/25 17:58 03/14/25 10:03 Laboratory: Laboratory Results - last 24 hr 03/13/25 15:54: Urine Color Red, Urine Clarity Clear, Urine pH 7.0, Ur Specific [place] 1.005, Urine Protein 30 H, Urine Glucose (UA) Normal, Urine Ketones Negative, Urine Occult Blood 250 H, Urine Nitrite Negative, Urine Bilirubin Negative, Urine Urobilinogen Normal, Ur Leukocyte Esterase 25 H, Urine RBC > 100 SEEN, Urine WBC 0-5 SEEN, Ur Squamous Epith Cells 0-5 SEEN, Amorphous Sediment 1+, Urine Bacteria RARE, Urine Mucus 0 SEEN, Ur Random Sodium 64, Urine Creatinine 22.20 L 03/13/25 15:56: Sodium 130 L, Potassium 4.1, Chloride 94 L, Carbon Dioxide 22.8, Anion Gap 13, BUN 28 H, Creatinine 2.17 H, Est GFR (MDRD) Non-Af 28 L, BUN/Creatinine Ratio 12.7, Glucose 112 H, Calcium 8.4 03/13/25 17:58: WBC 5.5, RBC 4.09 L, Hgb 12.8 L, Hct 36.7 L, MCV 89.7, MCH 31.3, MCHC 34.9, RDW Std Deviation 42.0, RDW Coeff of Atif 12.8, Plt Count 195, MPV 9.6, Immature Gran % (Auto) 0.400, Neut % (Auto) 62.6, Lymph % (Auto) 24.2, [place] % (Auto) 11.3 H, Eos % (Auto) 1.3, Baso % (Auto) 0.2, Absolute Neuts (auto) 3.4, Absolute Lymphs (auto) 1.33, Nucleated RBC % 0 03/14/25 10:03: Sodium 137, Potassium 3.7, Chloride 98, Carbon Dioxide 27.2, Anion Gap 12, BUN 15, Creatinine 1.22 H, Estim Creat Clear Calc 38.84 L, Est GFR (MDRD) Non-Af 57 L, BUN/Creatinine Ratio 12.3, Glucose 138 H, Calcium 9.0 Radiography Diagnostic Testing: Radiology Impression Renal Ultrasound 03/14/25 00:00 IMPRESSION: There is mild hydronephrosis of the right and left left kidneys. A catheter is seen in the bladder. There is a irregular bladder wall thickening with a bladder mass not excluded. Direct visualization is recommended. Consider pre and postcontrast CT correlation. Reading Location: [facility] Malin/C Instructions Call your doctor if you observe: Fever of 101 or Higher, Shortness of breath, Dizziness, Fainting spells, Swelling in the ankles, Chest pain and Increased palpitations (irregular heartbeat) DC O2, CPAP, BIPAP Needs Home O2 Discharge instructions: No Please Follow Up With: Balwinder Odonnell MD When: Call [phone] for an appointment Meaningful Use Info Meaningful Use Meaningful Use Diagnoses (Choose all that apply): None applicable Discharge Plan Admission Admit Date/Time: 03/13/25 17:40 Attending Provider: Nik Jj Primary Care Provider: Care Physician,No Primary Consulting Providers: Sonido Hernandez; Balwinder Odonnell Instructions Patient Instructions: Leg Bag Care Dc, Pugh Catheter Male Ch, ED Pugh Catheter, Care Discharge Orders/Prescriptions Prescriptions: New tamsulosin 0.4 mg Capsule 0.4 mg PO DAILY@1730 30 Days Qty: 30 0RF Referrals / Follow Up: Balwinder Odonnell MD [Med Staff - Active Staff, Urology] - Within 1 Week Care Physician,No Primary [Primary Care Provider, Medical] Disposition Disposition (needs filled in before D/C Order can be placed): Home, Self Care Charges/Coding Visit Charges Inpatient E&M: 90377 Disch Hosp >30min
== END 2025-03-14 14:26 | disposition home or self-care (01) | DRG 726 ==
LOC: ED 17:30 → MS3 18:06
PROVIDERS: Admitting Provider Hospitalist; Emergency Provider Emergency Medicine; Visit Provider Family Medicine
DX: N40.1 Benign prostatic hyperplasia with lower urinary tract symptoms (principal); E87.1 Hypo-osmolality and hyponatremia; N17.9 Acute kidney failure, unspecified; N13.8 Other obstructive and reflux uropathy; N13.30 Unspecified hydronephrosis; I10 Essential (primary) hypertension; E86.0 Dehydration; I16.0 Hypertensive urgency; R33.8 Other retention of urine; R35.0 Frequency of micturition; R39.15 Urgency of urination; R31.0 Gross hematuria; R35.1 Nocturia; Z79.899 Other long term (current) drug therapy; Z86.73 Personal history of transient ischemic attack (TIA), and cerebral infarction without residual deficits
CPT/HCPCS: 36415; 51702; 76770; 80048; 81001; 82570; 84300; 85025; 94668; 99284; A4216

== ENCOUNTER 2025-04-09 01:08 | Emergency (ER) | payer OTHER, SELFPAY ==
[2025-04-09 01:09] VITALS: BP 218/80; PULSE 75; RESP 16; TEMP 36.4; O2SAT 97; BMI 18.1
[2025-04-09 01:11] VITALS: BP 218/80; PULSE 71; RESP 16; TEMP 36.4; O2SAT 98
[2025-04-09 01:30] LABS: Mucous, Urine 0 SEEN /hpf (<or=2+); Squamous Epithelial Cells - UA 0 SEEN /hpf (0-5)
[2025-04-09 01:38] LABS: Color, Urine Amber (Yellow); Glucose, Dipstick Normal (Normal); Ketone-Dipstick Negative (Negative); Leukocyte Esterase-Dipstick 100 /ul (Negative); Nitrite-Dipstick Negative (Negative); Occult Blood-Urine 250 /ul (Negative); Protein-Dipstick 500 mg/dl (Negative); Specific Gravity, Urine 1.010 (1.002-1.030); Urine Bilirubin Dipstick Negative (Negative)
[2025-04-09 01:48] LABS: Red Blood Cells-Urine 50-100 SEEN /hpf (0-5)
[2025-04-09 02:11] VITALS: BP 216/61; PULSE 60; RESP 16; TEMP 36.4; O2SAT 96
[2025-04-09 03:00] VITALS: BP 234/76; PULSE 68; RESP 16; O2SAT 98
[2025-04-09 04:00] VITALS: BP 218/75; PULSE 72; RESP 16; TEMP 36.4; O2SAT 96
--- NOTE | 2025-04-09 04:09 | EX.ED.GUMALE ---
HPI History of Present Illness Chief Complaint: Complaint Narrative Narrative: Patient was seen and examined after presenting to ED for dysuria after removing the straight cath he was recently hospitalized for urinary retention hopefully catheter eventually was seen by urology he sent home was doing self cathing has been doing that for several weeks now but tonight after he self caths he started having some irritation. [facility] Medical History History of urinary retention TIA (transient ischemic attack) HTN (hypertension) Home Medications ?Medication ?Instructions ?Recorded ?Last Taken ?Type tamsulosin 0.4 mg capsule 0.4 mg PO DAILY@1730 30 days #30 03/14/25 Unknown Rx caps cephalexin 500 mg capsule 500 mg PO 4X/DAY 7 days #28 04/09/25 Unknown Rx CAPSULES finasteride 5 mg tablet 5 mg PO DAILY 04/09/25 Unknown History Allergy/AdvReac Type Severity Reaction Status Date / Time No Known Allergies Allergy Verified 04/09/25 01:08 Social History housing: house Smoking Status: Never smoker ROS ROS ED ROS Narrative Pertinent Positives: Dysuria with self cathing Pertinent Negatives: Fevers chills vomiting abdominal pain hematuria use of anticoagulation The remainder of review of systems negative unless otherwise stated in the HPI above. Systems reviewed including constitutional, psychiatric, cardiovascular, respiratory, integument, HENT, gastrointestinal. 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 penis otherwise looks rather unremarkable no signs of erythema no crepitus no lesions no blood coming from the urethral meatus Const Vital Signs: 04/09/25 01:09 04/09/25 01:11 04/09/25 02:11 Temperature 97.5 F L 97.5 F L 97.5 F L Temperature Source Oral Oral Oral Pulse Rate 75 71 60 Respiratory Rate 16 16 16 Blood Pressure 218/80 H 218/80 H 216/61 H Blood Pressure Mean 126 126 112 Pulse Ox 97 98 96 Oxygen Delivery Method Room Air Room Air Room Air 04/09/25 03:00 Temperature Temperature Source Pulse Rate 68 Respiratory Rate 16 Blood Pressure 234/76 H Blood Pressure Mean 128 Pulse Ox 98 Oxygen Delivery Method Room Air MDM MDM MDM Narrative Medical decision making narrative: Nursing notes, triage notes, available previous documentation, and vital signs were reviewed. Any discrepancies noted were addressed. Differential Diagnoses: Likely irritation from self cathing will make sure he does not have a UTI Interventions: Pugh catheter insertion Antibiotics Given: Keflex Labs Reviewed: Urine with 100 leukocyte esterase but negative nitrites only 0-5 WBCs Previous Documentation Reviewed: None available or applicable at this time. ED Course: Patient presenting with symptoms as stated above patient has a history of urinary retention he has been using self-catheterization likely caused irritation from the self cathing itself but given that 100 leukocyte esterase although lower likelihood of it being a UTI we will go ahead and treat out of an abundance of caution he was given a dose of Keflex here prescription for the same he was also counseled on his hypertension he states that he previously was on blood pressure medications but then his blood pressure ended up normalizing he has been off of it for a while now states that it was elevated when he came here recently but the next day after being discharged it was back to normal they have a blood pressure monitor at home that they can use so they will keep a log of it if he notices a trend of being continually hypertensive then it is advised that he would be placed on antihypertensive medications at this point time he is stable for follow-up and discharged home return precautions provided. This note was made utilizing voice recognition software. All attempts were made to correct spelling or other errors prior to note completion. However, due to the fast-paced nature of emergency medicine, some errors may still be present. Lab Data Labs: Laboratory Results - last 24 hr 04/09/25 01:20 Urine Color Lisa Urine Clarity Cloudy Urine pH 7.0 Ur Specific [place] 1.010 Urine Protein 500 H Urine Glucose (UA) Normal Urine Ketones Negative Urine Occult Blood 250 H Urine Nitrite Negative Urine Bilirubin Negative Urine Urobilinogen Normal Ur Leukocyte Esterase 100 H Urine RBC 50-100 SEEN Urine WBC 0-5 SEEN Ur Squamous Epith Cells 0 SEEN Urine Bacteria 0 SEEN Urine Mucus 0 SEEN Discharge Plan Triage Chief Complaint: Complaint ED Provider: Blanca Brennan Dx/Rx/DC Orders Clinical Impression: Dysuria, History of urinary retention, Hypertension Instructions: Understanding High Blood Pressure Prescriptions: New cephalexin 500 mg capsule 500 mg PO 4X/DAY 7 Days Qty: 28 0RF No Action tamsulosin 0.4 mg Capsule 0.4 mg PO DAILY@1730 30 Days Qty: 30 0RF finasteride 5 mg tablet 5 mg PO DAILY Primary Care Provider: Care Physician,No Primary Referrals: Care Physician,No Primary [Primary Care Provider, Medical] Activity Restrictions/Additional Instructions: keep monitoring your blood pressure you may need to be started on medications again for it. follow up with your doctors Print Language: Lithuanian Disposition Disposition: Home, Self Care
== END 2025-04-09 04:14 | disposition home or self-care (01) ==
PROVIDERS: Emergency Provider Specialist/Technologist Athletic Trainer; Visit Provider Specialist/Technologist Athletic Trainer
DX: R33.9 Retention of urine, unspecified (principal); R30.0 Dysuria; I10 Essential (primary) hypertension; Z86.73 Personal history of transient ischemic attack (TIA), and cerebral infarction without residual deficits
CPT/HCPCS: 51702; 81001; 99283

== ENCOUNTER → 2025-05-05 | Outpatient (CLI) | payer SELFPAY, OTHER ==
--- NOTE | 2025-05-05 15:00 | CT_ITS ---
PROCEDURE: ABDOMEN/PELVIS W IV CONT ONLY 05/05/2025 REASON FOR EXAM: BPH W LOWER URINARY TRACT SX/URINE RETENTION TECHNIQUE: Procedure Code: [id number] Modality: CT Procedure: ABDOMEN/PELVIS W IV CONT ONLY Coronal and Sagittal reconstruction series were provided. CONTRAST: Isovue 370 VOLUME: 75 mL One or more dose reduction techniques were used (e.g., Automated exposure control, adjustment of the mA and/or kV according to patient size, use of iterative reconstruction technique. RADIATION DOSE SUMMARY: CTDlvol: 9.40 mGy DLP: 1157.05 mGycm COMPARISON: None. FINDINGS: Lung bases: Clear. Liver: None. Gallbladder: Unremarkable. Spleen: Unremarkable. Pancreas: Unremarkable. Adrenals: Unremarkable. Kidneys: No hydronephrosis. No nephrolithiasis. Bladder: Diffuse wall thickening of the bladder consistent with cystitis. Reproductive Organs: Unremarkable. Bowel: No bowel obstruction bowel. No bowel wall thickening. Appendix: Unremarkable. Lymph nodes: No lymphadenopathy Vasculature: No aortic aneurysm. Atherosclerotic calcifications of the aorta. Peritoneum / Retroperitoneum: No free air or free fluid. Bones: No acute bony abnormalities. 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 No hydronephrosis. No nephrolithiasis. Reading Location: [facility]
== END | disposition home or self-care (01) ==
LOC: CT 14:53
PROVIDERS: Referring Provider Urology; Visit Provider Urology
DX: N40.1 Benign prostatic hyperplasia with lower urinary tract symptoms (principal); R33.8 Other retention of urine
CPT/HCPCS: 74177; Q9967